=== PATIENT | male | born 1985 | race Caucasian/White ===

== ENCOUNTER → 2018-06-17 | Outpatient (CLI) | payer BC ==
[~2018-06-17] MED LIST: CIPR5DRO EACH EAR; HYDR1TAB PO; OMEP20TA7 PO
--- NOTE | 2018-06-17 14:28 | Diagnostic Imaging Report ---
PROCEDURE: MRI lumbar spine. TECHNIQUE: Multiplanar, multisequence MRI of the lumbar spine was performed without contrast. INDICATION: Left leg pain. FINDINGS: There are no previous MRI examinations available for comparison. The plain film examination of the lumbar spine performed on 10/25/2014 failed to show any sign of an acute bony abnormality. The T2 parasagittal images of this exam reveal that there is slight retrolisthesis of L4 with respect to L5 and that there is narrowing of the disc space. The disc is also desiccated. Furthermore, there is an extradural defect extending from the L4-L5 disc space caudally along the left ventral aspect of the thecal sac at L4-L5. This does compress the left ventral aspect of thecal sac resulting in mild central stenosis. The disc material is also in proximity to the exiting left nerve root and I suspect that there is encroachment of the nerve root at this level. The remainder of the lumbar spine is unremarkable for spinal stenosis or nerve root encroachment. There is no abnormal signal arising from the cord or the vertebral bodies to indicate an acute abnormality. There is no sign of a paraspinal mass. IMPRESSION: 1. There is degenerative disc and bony disease at L4-L5. There is a disc protrusion to the left at this level with caudal migration of the disc material. The disc compresses the left ventral aspect of the thecal sac resulting in mild spinal stenosis. There is also most likely encroachment of the exiting left nerve root at this level. 2. The remainder of the lumbar spine is unremarkable for spinal stenosis or nerve root encroachment. 3. There is no sign of an acute bony abnormality or of a cord lesion. Dictated by: Dictated on workstation # [id number]
== END ==
LOC: RAD 10:39
PROVIDERS: ATTEND Nurse Practitioner Family
DX: M47.26 Other spondylosis with radiculopathy, lumbar region (principal); M89.9 Disorder of bone, unspecified; M51.16 Intervertebral disc disorders with radiculopathy, lumbar region; M48.061 Spinal stenosis, lumbar region without neurogenic claudication
CPT/HCPCS: 72148

== ENCOUNTER 2018-07-03 19:34 | Emergency (ER) | payer BC ==
[~2018-07-03] VITALS: Ht 195.6 cm; Wt 111.1 kg
--- OUTSIDE RECORDS SUMMARY | 2018-07-03 20:07 | XMS REPORT | Continuity of Care Document ---
Author Author [facility] Organization [facility] Address Unknown Phone Unavailable Allergies Active Description Code Type Severity Reaction Onset Reported/Identified Relationship to Patient Clinical Status Yes NKANo Known Allergies NKA Miscellaneous Allergy Unknown N/A 04/09/2016 Medications There is no data. Problems Date Dx Coded Attending Type Code Diagnosis Diagnosed By 01/31/2011 Ot 831.01 01/31/2011 Ot 959.2 01/31/2011 Ot E000.8 01/31/2011 Ot E007.9 01/31/2011 Ot E849.4 01/31/2011 Ot E888.8 11/12/2014 Ot 724.2 01/26/2015 CAITLIN BAER DO Ot 327.23 OBSTRUCTIVE SLEEP APNEA (ADULT) (PEDIATR 07/18/2015 Ot 724.2 10/11/2015 Ot 724.2 11/23/2015 BRENT BOLAND [facility] Ot E07.9 11/23/2015 BRENT BOLAND [facility] Ot E16.2 11/23/2015 BRENT BOLAND [facility] Ot E78.5 11/23/2015 BRENT BOLAND [facility] Ot E87.5 11/23/2015 BRENT BOLAND [facility] Ot R00.2 01/09/2016 BRENT BOLAND [facility] Ot E07.9 DISORDER OF THYROID, UNSPECIFIED 01/09/2016 BRENT BOLAND [facility] Ot E16.2 HYPOGLYCEMIA, UNSPECIFIED 01/09/2016 BRENT BOLAND [facility] Ot E78.5 HYPERLIPIDEMIA, UNSPECIFIED 01/09/2016 BRENT BOLAND [facility] Ot E87.5 HYPERKALEMIA 01/09/2016 BRENT BOLAND [facility] Ot R00.2 PALPITATIONS 01/15/2016 BRENT BOLAND [facility] Ot E07.9 DISORDER OF THYROID, UNSPECIFIED 01/15/2016 BRENT BOLAND [facility] Ot E16.2 HYPOGLYCEMIA, UNSPECIFIED 01/15/2016 BRENT BOLAND [facility] Ot E78.5 HYPERLIPIDEMIA, UNSPECIFIED 01/15/2016 BRENT BOLAND [facility] Ot E87.5 HYPERKALEMIA 01/15/2016 BRENT BOLAND [facility] Ot R00.2 PALPITATIONS 04/09/2016 BRENT BOLAND [facility] Ot E07.9 DISORDER OF THYROID, UNSPECIFIED 04/09/2016 BRENT BOLAND [facility] Ot E16.2 HYPOGLYCEMIA, UNSPECIFIED 04/09/2016 BRENT BOLAND [facility] Ot E78.5 HYPERLIPIDEMIA, UNSPECIFIED 04/09/2016 BRENT BOLAND [facility] Ot E87.5 HYPERKALEMIA 04/09/2016 BRENT BOLAND [facility] Ot R00.2 PALPITATIONS 04/09/2016 ESTHELA PELLETIER, ELPIDIO P Ot H66.93 OTITIS MEDIA, UNSPECIFIED, BILATERAL 04/09/2016 ESTHELA PELLETIER, ELPIDIO P Ot Z01.818 ENCOUNTER FOR OTHER PREPROCEDURAL EXAMIN 04/11/2016 ELPIDIO PROCTOR MD P Ot H66.93 OTITIS MEDIA, UNSPECIFIED, BILATERAL 04/11/2016 ELPIDIO PROCTOR MD P Ot Z01.818 ENCOUNTER FOR OTHER PREPROCEDURAL EXAMIN 04/12/2016 ELPIDIO PROCTOR MD P Ot H66.93 OTITIS MEDIA, UNSPECIFIED, BILATERAL 04/12/2016 ESTHELA PELLETIER, ELPIDIO P Ot Z11.2 ENCOUNTER FOR SCREENING FOR OTHER BACTER 04/13/2016 ELPIDIO PROCTOR MD P Ot H66.93 OTITIS MEDIA, UNSPECIFIED, BILATERAL 04/13/2016 ESTHELA PELLETIER, ELPIDIO P Ot Z11.2 ENCOUNTER FOR SCREENING FOR OTHER BACTER 06/25/2017 Ot 724.2 LUMBAGO 06/25/2017 BRENT BOLAND [facility] Ot E07.9 DISORDER OF THYROID, UNSPECIFIED 06/25/2017 BRENT BOLAND [facility] Ot E16.2 HYPOGLYCEMIA, UNSPECIFIED 06/25/2017 BRENT BOLAND [facility] Ot E78.5 HYPERLIPIDEMIA, UNSPECIFIED 06/25/2017 BRENT BOLAND [facility] Ot E87.5 HYPERKALEMIA 06/25/2017 BRENT BOLAND [facility] Ot R00.2 PALPITATIONS 06/16/2018 Ot 724.2 LUMBAGO 06/16/2018 BRENT BOLAND [facility] Ot E07.9 DISORDER OF THYROID, UNSPECIFIED 06/16/2018 BRENT BOLAND Kendra [facility] Ot E16.2 HYPOGLYCEMIA, UNSPECIFIED 06/16/2018 IRIS BOLANDKenyon Gardner [facility] Ot E78.5 HYPERLIPIDEMIA, UNSPECIFIED 06/16/2018 BRENT BOLAND Kendra [facility] Ot E87.5 HYPERKALEMIA 06/16/2018 BRENT BOLAND Kendra [facility] Ot R00.2 PALPITATIONS 06/19/2018 EVE CHAVEZ [facility] Ot M47.26 OTHER SPONDYLOSIS WITH RADICULOPATHY, LOBO 06/19/2018 ISHMAEL CHAVEZYSON R [facility] Ot M48.061 SPINAL STENOSIS, LUMBAR REGION WITHOUT N 06/19/2018 EVE CHAVEZ R [facility] Ot M51.16 INTERVERTEBRAL DISC DISORDERS W RADICULO 06/19/2018 EVE CHAVEZ R [facility] Ot M89.9 DISORDER OF BONE, UNSPECIFIED Procedures There is no data. Results Test Result Range Methicillin resistant Staphylococcus aureus (MRSA) screening culture - 06:10 Methicillin resistant Staphylococcus aureus (MRSA) screening culture NEG NRG Encounters ACCT No. Visit Date/Time Discharge Status Pt. Type Provider Facility Loc./Unit Complaint [id number] 06/17/2018 10:39:00 06/17/2018 23:59:59 CLS Outpatient EVE CHAVEZ APRN [facility] RAD LOW BACK PAIN W/ RADICULOPATHY LT [id number] 04/12/2016 05:51:00 04/12/2016 08:40:00 DIS Outpatient ELPIDIO PROCTOR MD [facility] SDC OTITIS MEDIA [id number] 04/09/2016 05:42:00 04/09/2016 16:22:00 DIS Outpatient ELPIDIO PROCTOR MD [facility] PREOP OTITIS MEDIA [id number] 01/10/2016 08:00:00 01/10/2016 23:59:59 CLS Preadmit BRENT BOLAND APRN [facility] CARD HTN,CP,PALPITATIONS [id number] 10/11/2015 07:53:00 01/09/2016 00:01:00 DIS Outpatient BRENT BOLAND APRN [facility] CARD HTN,CP,PALPITATIONS [id number] 01/25/2015 19:53:00 01/26/2015 07:05:00 DIS Outpatient CAITLIN BAER DO [facility] SLEEP LINA,SNORING [id number] 10/25/2014 16:23:00 Document Registration [id number] 01/31/2011 19:24:00 Document Registration [id number] 01/25/2015 19:58:00 ACT Document Registration
[2018-07-03] MEDS ORDERED: TETANUS,DIPTH,PERTUSS P/F (BOOSTRIX) 0.5 ML VIAL IM ONE ×2 (20:36→21:00)
--- NOTE | 2018-07-03 20:53 | ED Integumentary General ---
General Chief Complaint: Laceration Stated Complaint: CUT FINGER Nursing Triage Note: PT WAS USING A BOX KNIFE AND HIS HAND SLIPPED, CUTTING THE RING FINGER ON HIS LEFT HAND. PT PRESENTS TO THE ED AMBULATORY, BLEEDING CURRENTLY BEING CONTROLLED BY A DISH TOWEL. Source: patient Exam Limitations: no limitations History of Present Illness Date Seen by Provider: Jul 03, 2018 Time Seen by Provider: 20:15 Initial Comments Patient is a 33-year-old male who presents to the emergency room with complaints of laceration to his left ring/fourth finger. He reports that he was cutting jami with a box knife when the knife slipped and cut his finger. He is not up-to-date on his tetanus shot. Timing/Duration: just prior to arrival Associated Symptoms: denies symptoms Allergies and Home Medications Allergies Coded Allergies: NKANo Known Allergies (Verified Allergy, Unknown, 04/09/16) Home Medications Ciprofloxacin HCl 5 Ml Drops, 3 DROPS EACH EAR BID Prescribed by: RON CHAPPELL on 04/12/16 0816 Hydrocodone Bit/Acetaminophen 1 Each Tablet, 1-2 EACH PO Q4HR PRN Prescribed by: SYLVESTER MCIHEL on 01/31/112031 Omeprazole 20 Mg Tablet.dr, 20 MG PO DAILY, (Reported) Patient Home Medication List Home Medication List Reviewed: Yes Review of Systems Review of Systems Constitutional: no symptoms reported, see HPI Skin: see HPI, other (laceration to left finger just over the PIP joint.) All Other Systems Reviewed Negative Unless Noted: Yes Past Xlyovtr-Kzhhig-Ojleix Hx Past Med/Social Hx: Reviewed Nursing Past Med/Soc Hx Patient Social History Alcohol Use: Occasionally Uses Alcohol Beverage of Choice: Beer Recreational Drug Use: No Smoking Status: Never a Smoker Recent Foreign Travel: No Contact w/Someone Who Travel: No Recent Infectious Disease Expo: No Recent Hopitalizations: No Immunizations Up To Date Tetanus Booster (TDap): More than 5yrs PED Vaccines UTD: Yes Seasonal Allergies Seasonal Allergies: No Past Medical History Surgeries: Yes (FX WRIST, TUBES IN EARS X2,UMBILICAL HERNIA, SMALL INTESTINE REPAIRED, ) Orthopedic Respiratory: Yes (CPAP) Sleep Apnea Cardiac: No Neurological: No Reproductive Disorders: No Sexually Transmitted Disease: No HIV/AIDS: No Genitourinary: No Gastrointestinal: Yes Gastroesophageal Reflux Musculoskeletal: No Endocrine: No HEENT: No Loss of Vision: Denies Hearing Impairment: Denies Cancer: No Psychosocial: No Integumentary: No Blood Disorders: No Adverse Reaction/Blood Tranf: No (N/A) Family Medical History Reviewed Nursing Family Hx Physical Exam Vital Signs Vital Signs - First Documented 07/03/18 20:20 Temp 99.2 Pulse 85 Resp 20 B/P (MAP) 153/102 (119) Pulse Ox 98 O2 Delivery Room Air Capillary Refill : Less Than 3 Seconds General Appearance: WD/WN, no apparent distress Cardiovascular: normal peripheral pulses, regular rate, rhythm, no edema, no gallop, no JVD, no murmur Respiratory: chest non-tender, lungs clear, normal breath sounds, no respiratory distress, no accessory muscle use Extremities: normal capillary refill, other Neurologic/Psychiatric: alert, normal mood/affect, oriented x 3 Skin: normal color, warm/dry Skin Problem Location: upper extremities (left 4th finger/ dorsal surface of finger see images 1.5cm) Comments no evidence of tendon injury. flexion and extension intact of left 4th finger. Procedures/Interventions Wound Location: Upper Extremities Other Wound Location Left 4th finger see images Wound Length (cm): 1.5 Wound's Depth, Shape: superficial Wound Explored: clean Irrigated w/ Saline (ccs): 200 Anesthesia: 1% Lidocaine Volume Anesthetic (ccs): 2 Wound Debrided: minimal Suture: Prolene Suture Size: 5-0 Number of Sutures: 6 Progress The wound was cleaned and irrigated with normal saline. The wound was anesthetized with 1% lidocaine with out epi. Finger tourniquet was applied to control bleeding. The wound was closed with 6 simple interrupted sutures of 5-0 Prolene. Finger tourniquet was removed bleeding had ceased. Progress/Results/Core Measures Results/Orders My Orders Orders - BERNOT,DINO Lidocaine 1% Inj 20 Ml (Xylocaine 1% Inj (07/03/18 21:00) Dipht,Pertuss(Acell),Tet Adult (Boostrix (07/03/18 21:00) Medications Given in ED Vital Signs/I&O 07/03/18 07/03/18 20:20 21:03 Temp 99.2 99.2 Pulse 85 85 Resp 20 20 B/P (MAP) 153/102 (119) 153/102 (119) Pulse Ox 98 98 O2 Delivery Room Air Blood Pressure Mean: 119 Departure Impression Primary Impression: Laceration Disposition: 01 HOME, SELF-CARE Condition: Stable/Unchanged Departure-Patient Inst. Decision time for Depature: 20:53 Referrals: CAITLIN BAER DO (PCP/Family) Primary Care Physician Patient Instructions: Laceration Repair With Stitches (DC) Add. Discharge Instructions: Watch for signs of infection such as increased redness, swelling, drainage. Tylenol and ibuprofen as directed by the bottle for pain relief. Return back to the emergency room in 7 days for suture removal. Follow-up with your primary care provider as needed return back to the emergency room for any worsening symptoms or concerns as needed. All discharge instructions reviewed with patient and/or family. Voiced understanding. Images Extremities-Upper 1 - Laceration DINO GARCIA Jul 03, 2018 20:53
[2018-07-03] MEDS ORDERED: LIDOCAINE 1% INJ 20 ML 20 ML VIAL INJ ONE (21:00)
[2018-07-03 21:03] VITALS: BP 153/102
== END 2018-07-03 21:03 | disposition home or self-care (01) ==
LOC: EDUNIT# 19:34 → ER 19:35
DX: S61.215A Laceration without foreign body of left ring finger without damage to nail, initial encounter (principal); G47.30 Sleep apnea, unspecified; K21.9 Gastro-esophageal reflux disease without esophagitis; Z23 Encounter for immunization; Z98.890 Other specified postprocedural states; W27.8XXA Contact with other nonpowered hand tool, initial encounter
CPT/HCPCS: 90715; 99284

== ENCOUNTER 2019-03-20 21:19 | Inpatient (IN) | payer BC ==
[~2019-03-20] VITALS: Ht 182.9 cm; Wt 113.4 kg
[2019-03-20] MEDS ORDERED: OMEP20CA13 (21:31)
[2019-03-20] MEDS ORDERED: CIPR2.5D2 LEFT EAR (21:31)
[2019-03-20] MEDS ORDERED: CEFU250T80 PO (21:31)
[2019-03-20] MEDS ORDERED: fentaNYL INJECTION 100 MCG/2 ML AMP IVP STA (21:49)
[2019-03-20] MEDS ORDERED: NS IV 1000 ML 1,000 ML IV ONE (21:49)
[2019-03-20 21:57] LABS: BASOPHILS % (AUTO) 0 % (0-10); EOSINOPHILS % (AUTO) 0 % (0-10); HEMATOCRIT 44 % (40-54); HEMOGLOBIN 15.1 G/DL (13.3-17.7); LYMPHOCYTES # (AUTO) 1.2 X 10^3 (1.0-4.0); LYMPHOCYTES % (AUTO) 9 % (12-44); MEAN CORPUSCULAR HEMOGLOBIN 30 PG (25-34); MEAN CORPUSCULAR HGB CONC 34 G/DL (32-36); MEAN CORPUSCULAR VOLUME 89 FL (80-99); MEAN PLATELET VOLUME 11.1 FL (7.4-10.4); MONOCYTES # (AUTO) 1.2 X 10^3 (0.0-1.0); MONOCYTES % (AUTO) 10 % (0-12); NEUTROPHILS # (AUTO) 10.4 X 10^3 (1.8-7.8); NEUTROPHILS % (AUTO) 81 % (42-75); PLATELET COUNT 325 10^3/uL (130-400); WHITE BLOOD COUNT 12.9 10^3/uL (4.3-11.0)
[2019-03-20] MEDS ORDERED: VANCOMYCIN INJECTION 1,000 MG in NS (IVPB) 250 ML IV STA (21:58)
[2019-03-20] MEDS ORDERED: CEFEPIME INJECTION 2,000 MG in WATER (STERILE) FOR INJECTION 20 ML IV ONE (22:00)
[2019-03-20] MEDS ORDERED: KETOROLAC 30 MG/ML VIAL IVP ONE (22:00)
[2019-03-20] MEDS ORDERED: ONDANSETRON 4 MG/2 ML (SDV) Z0FRAN IVP ONE (22:00)
--- NOTE | 2019-03-20 22:05 | ED EENT ---
History of Present Illness General Chief Complaint: Ear Problems Stated Complaint: L EAR INFECTION/SWELLING Nursing Triage Note: LEFT EAR PAIN/DRAINAGE/SWELLING SINCE 03/16/19. SEEN BY PCP/ENT FOR SAME STARTED ON ABX WITHOUT IMPROVEMENT. Source: patient, spouse Exam Limitations: no limitations History of Present Illness Date Seen by Provider: Mar 20, 2019 Time Seen by Provider: 21:45 Initial Comments Patient presents to ER by private conveyance with his significant other and chief complaint that he's having left ear pain and discharge of the thin yellow substance as well as fevers and chills for the past 3 or 4 days. Aggressively gotten worse. His been using ibuprofen and Tylenol but his last dose of ibuprofen 400 mg at 5:00 approximately 5 hours prior to arrival. Tylenol was approximately 3 hours prior to arrival. He is afebrile the ER or his nurse. He says he had chills all night last night and had a hard time sleeping because of the pain. No other significant medical history does not take any medicines routinely. 3 years ago he had bilateral myringotomy tubes placed by Dr. Ghotra, ENT. Call Dr. Ghotra 2 days ago and was cold out on some oral antibiotics which she has been taking. Yesterday he was still having significant difficulty so he went to Dr. Adair primary care if she said the myringotomy tube on the right ear was in place the left tube was missing and ear had some discharge redness and swelling which is worse today. She put him on ciprofloxacin eardrops. No history of mastoiditis cholesteatoma or significant ear infections since having the tubes placed. Allergies and Home Medications Allergies Coded Allergies: NKANo Known Allergies (Verified Allergy, Unknown, 04/09/16) Home Medications Omeprazole 20 Mg Tablet.dr, 20 MG PO DAILY, (Reported) Patient Home Medication List Home Medication List Reviewed: Yes Review of Systems Review of Systems Constitutional: No chills, No diaphoresis Eyes: Denies Blindness, Denies Blurred Vision Ears: See HPI; Denies Dizziness; Pain, Purulent Discharge Nose: denies clots, denies congestion Mouth: denies clots, denies loose teeth Throat: denies pain, denies swelling Respiratory: No cough, No short of breath Cardiovascular: No chest pain, No edema Past Fvsyjxa-Pbvqff-Tqwcds Hx Patient Social History Alcohol Use: Occasionally Uses Number of Drinks Today: AA Alcohol Beverage of Choice: Beer Recreational Drug Use: No Smoking Status: Never a Smoker 2nd Hand Smoke Exposure: No Recent Foreign Travel: No Contact w/Someone Who Travel: No Recent Infectious Disease Expo: No Recent Hopitalizations: No Physical Abuse: No Sexual Abuse: No Mistreated: No Fear: No Immunizations Up To Date Tetanus Booster (TDap): Less than 5yrs PED Vaccines UTD: Yes Seasonal Allergies Seasonal Allergies: No Past Medical History Surgeries: Yes (FX WRIST, TUBES IN EARS X4,UMBILICAL HERNIA, SMALL INTESTINE REPAIRED, ) Abdominal, Orthopedic Respiratory: Yes (CPAP) Sleep Apnea Cardiac: Yes Hypertension Neurological: No Reproductive Disorders: No Sexually Transmitted Disease: No HIV/AIDS: No Genitourinary: No Gastrointestinal: Yes Abdominal Hernia, Gastroesophageal Reflux Musculoskeletal: No Endocrine: No HEENT: No Loss of Vision: Denies Hearing Impairment: Denies Cancer: No Psychosocial: No Integumentary: No Blood Disorders: No Adverse Reaction/Blood Tranf: No (N/A) Physical Exam Vital Signs Vital Signs - First Documented 03/20/19 21:23 Temp 97.8 Pulse 102 Resp 18 B/P (MAP) 148/95 (112) Pulse Ox 97 O2 Delivery Room Air Height, Weight, BMI Height: 6'0" Weight: 250lbs. 0.0oz. 113.284016zc; 37.44 BMI Method:Stated General Appearance: WD/WN, mild distress Eyes: bilateral eye normal inspection, bilateral eye PERRL, bilateral eye EOMI Ears: right ear auricle normal, right ear canal normal, right ear TM normal (tympanostomy tube in place blue); left ear discharge (thick yellow discharge), left ear erythema, left ear swelling (are equal and canal), left ear tenderness, left ear other (tympanostomy tubes seen) Nose: normal inspection; No discharge Mouth/Throat: normal mouth inspection, pharynx normal Neck: non-tender, full range of motion, supple, normal inspection Cardiovascular: normal peripheral pulses, regular rate, rhythm, tachycardia Respiratory: no respiratory distress, no accessory muscle use Neurologic/Psychiatric: alert, normal mood/affect, oriented x 3 Skin: normal color, warm/dry Procedures/Interventions Suture Size: 5-0 Progress/Results/Core Measures Results/Orders Lab Results Laboratory Tests Test 03/20/19 21:23 Range/Units White Blood Count 12.9 H 4.3-11.0 10^3/uL Red Blood Count 5.00 4.35-5.85 10^6/uL Hemoglobin 15.1 13.3-17.7 G/DL Hematocrit 44 40-54 % Mean Corpuscular Volume 89 80-99 FL Mean Corpuscular Hemoglobin 30 25-34 PG Mean Corpuscular Hemoglobin Concent 34 32-36 G/DL Red Cell Distribution Width 14.0 10.0-14.5 % Platelet Count 325 130-400 10^3/uL Mean Platelet Volume 11.1 H 7.4-10.4 FL Neutrophils (%) (Auto) 81 H 42-75 % Lymphocytes (%) (Auto) 9 L 12-44 % Monocytes (%) (Auto) 10 0-12 % Eosinophils (%) (Auto) 0 0-10 % Basophils (%) (Auto) 0 0-10 % Neutrophils # (Auto) 10.4 H 1.8-7.8 X 10^3 Lymphocytes # (Auto) 1.2 1.0-4.0 X 10^3 Monocytes # (Auto) 1.2 H 0.0-1.0 X 10^3 Eosinophils # (Auto) 0.0 0.0-0.3 10^3/uL Basophils # (Auto) 0.0 0.0-0.1 10^3/uL Sodium Level 137 135-145 MMOL/L Potassium Level 3.7 3.6-5.0 MMOL/L Chloride Level 103 98-107 MMOL/L Carbon Dioxide Level 20 L 21-32 MMOL/L Anion Gap 14 5-14 MMOL/L Blood Urea Nitrogen 11 7-18 MG/DL Creatinine 0.92 0.60-1.30 MG/DL Estimat Glomerular Filtration Rate > 60 BUN/Creatinine Ratio 12 Glucose Level 105 70-105 MG/DL Lactic Acid Level 0.79 0.50-2.00 MMOL/L Calcium Level 9.4 8.5-10.1 MG/DL Corrected Calcium 9.2 8.5-10.1 MG/DL Total Bilirubin 0.6 0.1-1.0 MG/DL Aspartate Amino Transf (AST/SGOT) 18 5-34 U/L Alanine Aminotransferase (ALT/SGPT) 31 0-55 U/L Alkaline Phosphatase 137 H 40-136 U/L C-Reactive Protein High Sensitivity 8.27 H 0.00-0.50 MG/DL Total Protein 8.1 6.4-8.2 GM/DL Albumin 4.3 3.2-4.5 GM/DL My Orders Orders - SOLE STEVENS Ketorolac Injection (Toradol Injection) (03/20/19 22:00) Cefepime Injection (Maxipime Injection) (03/20/19 22:00) Vancomycin Injection (Vancomycin Injecti (03/20/19 21:58) Vancomycin Injection (Vancomycin Injecti (03/20/19 22:22) Ns (Ivpb) (Sodium Chloride 0.9%) (03/20/19 22:22) Medications Given in ED Current Medications Medications Dose Ordered Sig/Miguel Route Start Time Stop Time Status Last Admin Dose Admin Cefepime HCl 2000 mg/Sterile Water 20 ml @ 240 mls/hr ONCE ONCE IV 03/20/19 22:00 03/20/19 22:04 DC 03/20/19 22:06 240 MLS/HR Ketorolac Tromethamine 30 mg ONCE ONCE IVP 03/20/19 22:00 03/20/19 22:02 DC 03/20/19 22:08 30 MG Ondansetron HCl 4 mg ONCE ONCE IVP 03/20/19 22:00 03/20/19 22:01 DC 03/20/19 22:08 4 MG Sodium Chloride 1,000 ml @ 0 mls/hr Q0M ONCE IV 03/20/19 21:49 03/20/19 21:52 DC 03/20/19 22:06 999 MLS/HR Vital Signs/I&O 03/20/19 21:23 Temp 97.8 Pulse 102 Resp 18 B/P (MAP) 148/95 (112) Pulse Ox 97 O2 Delivery Room Air Blood Pressure Mean: 112 Progress Progress Note : Time: 22:07 Progress Note History of subjective fevers and chills, tachycardic and worsening pain discharge despite 2 days of antibiotics orally and 1 day of topical antibiotics. He has swelling and tenderness around his mastoid bone as well as the tragus of his left ear. Suspect she might have mastoiditis or abscess. We'll give him something with some pseudomonal and MRSA coverage cefepime and vancomycin get a septic workup and a CT of the maxillofacial. Toradol for pain and if that doesn't work we'll try fentanyl. Diagnostic Imaging Diagonstic Imaging: Xray Plain Films/CT/US/NM/MRI: chest (1v) Reviewed: Reviewed by Me Diagonstic Imaging: CT Plain Films/CT/US/NM/MRI: facial bones Reviewed: Reviewed [place] Study, Reviewed by Me Departure Communication (Admissions) Time/Spoke to Admitting Phy: 23:00 Discussed the case lab and imaging and she agrees with antibiotic choices and admission. Stable for floor. Impression Primary Impression: Acute otitis media, left Additional Impressions: Sepsis Qualified Codes: A41.9 - Sepsis, unspecified organism Cellulitis of left ear canal Disposition: ADMITTED INPATIENT Condition: Stable Admissions Decision to Admit Reason: Admit from ER (General) Decision to Admit/Date: Mar 20, 2019 Time/Decision to Admit Time: 22:56 Departure-Patient Inst. Referrals: CAITLIN ADAIR DO (PCP/Family) Primary Care Physician SOLE STEVENS Mar 20, 2019 22:05
[2019-03-20 22:13] LABS: ALANINE AMINOTRANSFERASE 31 U/L (0-55); ALBUMIN 4.3 GM/DL (3.2-4.5); ALKALINE PHOSPHATASE 137 U/L (40-136); BILIRUBIN,TOTAL 0.6 MG/DL (0.1-1.0); BUN/CREATININE RATIO 12; CALCIUM 9.4 MG/DL (8.5-10.1); CARBON DIOXIDE 20 MMOL/L (21-32); CHLORIDE 103 MMOL/L (98-107); CREATININE SERUM 0.92 MG/DL (0.60-1.30); GFR ESTIMATED > 60; GLUCOSE 105 MG/DL (70-105); POTASSIUM 3.7 MMOL/L (3.6-5.0); SODIUM 137 MMOL/L (135-145); TOTAL PROTEIN 8.1 GM/DL (6.4-8.2)
[2019-03-20] MEDS ORDERED: NS (IVPB) 250 ML ONE (22:22)
[2019-03-20] MEDS ORDERED: VANCOMYCIN 1000 MG/VIAL ONE (22:22)
[2019-03-20] MEDS ORDERED: ACETAMINOPHEN 325 MG TABLET PO ONE (23:30)
[2019-03-20 23:42] VITALS: BP 135/88
[2019-03-20 23:46] VITALS: BP 135/88
--- OUTSIDE RECORDS SUMMARY | 2019-03-21 00:03 | XMS REPORT | CCD ---
Author Author Caitlin Adair D.O. Organization [facility] Address [address] [place] [address] Phone Care Team Providers Care Package Dyeing Machine Operator Name Role Phone Caitlin Adair D.O., PP Unavailable CCM Unavailable Summary Purpose Interface Exchange Insurance Providers Payer name Policy type / Coverage type Covered alliance party ID Effective Begin Date Effective End Date Blue Cross Blue Shield Blue Cross/Blue Shield [id number] 2018 Unknown Family history Father Diagnosis Age At Onset Hyperthyroidism Unknown Hiatal Hernia Unknown Mother Diagnosis Age At Onset Hypertension Unknown Social History Social History Element Codes Description Effective Dates Marital status Unknown 06/09/2014 Employment Unknown Currently employed 06/09/[address]: 905974 Currently drinks alcohol per week, 3-5 06/09/2014 Allergies, Adverse Reactions, Alerts Substance Reaction Codes Entered Date Inactivated Date Status * NO KNOWN FOOD ALLERGIES Unknown 06/09/2014 No Inactive Date Active * NO KNOWN DRUG ALLERGIES Unknown 06/09/2014 No Inactive Date Active Past Medical History Illness Codes Condition Status Onset Date Resolved Date Hypertension Unknown Active 03/19/2019 Unknown Acute suppurative otitis media with spontaneous rupture of ear drum, left ear ICD-9: 382.01 ICD-10: H66.012 Active 03/19/2019 Unknown Essential (primary) hypertension ICD-9: 401.9 ICD-10: I10 Active 03/19/2019 Unknown Acute pharyngitis, unspecified ICD-9: 462 ICD-10: J02.9 Active 08/15/2017 Unknown Acute upper respiratory infection, unspecified ICD-9: 465.9 ICD-10: J06.9 Active 10/23/2018 Unknown Lumbago with sciatica, left side ICD-9: 724.3 ICD-10: M54.42 Active 06/16/2018 Unknown Encounter for general adult medical examination without abnormal findings ICD-9: V70.0 ICD-10: Z00.00 Active 02/15/2017 Unknown Gastro-esophageal reflux disease without esophagitis ICD-9: 530.81 ICD-10: K21.9 Active 02/15/2017 Unknown Mixed hyperlipidemia ICD- 9: 272.2 ICD-10: E78.2 Active 10/09/2015 Unknown Allergic rhinitis, unspecified ICD-9: 477.9 ICD-10: J30.9 Active 01/01/2016 Unknown Chest pain, unspecified ICD-9: 786.50 ICD-10: R07.9 Active 10/09/2015 Unknown Encounter for general adult medical examination with abnormal findings ICD-9: V70.0 ICD-10: Z00.01 Active 10/09/2015 Unknown Hyperkalemia ICD-9: 276.7 ICD-10: E87.5 Active 10/09/2015 Unknown Hypoglycemia, unspecified ICD-9: 251.2 ICD-10: E16.2 Active 10/09/2015 Unknown Palpitations ICD-9: 785.1 ICD-10: R00.2 Active 10/09/2015 Unknown GERD ICD-9: 530.81 Active 06/09/2014 Unknown SCIATICA ICD-9: 724.3 Active 06/09/2014 Unknown Tinea versicolor ICD-9: 111.0 Active 06/09/2014 Unknown Problems Condition Codes Effective Dates Condition Status Hypertension Unknown 03/19/2019 Active Acute suppurative otitis media with spontaneous rupture of ear drum, left ear ICD-9: 382.01 ICD-10: H66.012 03/19/2019 Active Essential (primary) hypertension ICD-9: 401.9 ICD-10: I10 03/19/2019 Active Acute pharyngitis, unspecified ICD-9: 462 ICD-10: J02.9 08/15/2017 Active Acute upper respiratory infection, unspecified ICD-9: 465.9 ICD-10: J06.9 10/23/2018 Active Lumbago with sciatica, left side ICD-9: 724.3 ICD-10: M54.42 06/16/2018 Active Encounter for general adult medical examination without abnormal findings ICD-9: V70.0 ICD-10: Z00.00 02/15/2017 Active Gastro-esophageal reflux disease without esophagitis ICD-9: 530.81 ICD-10: K21.9 02/15/2017 Active Mixed hyperlipidemia ICD- 9: 272.2 ICD-10: E78.2 10/09/2015 Active Allergic rhinitis, unspecified ICD-9: 477.9 ICD-10: J30.9 01/01/2016 Active Chest pain, unspecified ICD-9: 786.50 ICD-10: R07.9 10/09/2015 Active Encounter for general adult medical examination with abnormal findings ICD-9: V70.0 ICD-10: Z00.01 10/09/2015 Active Hyperkalemia ICD-9: 276.7 ICD-10: E87.5 10/09/2015 Active Hypoglycemia, unspecified ICD-9: 251.2 ICD-10: E16.2 10/09/2015 Active Palpitations ICD-9: 785.1 ICD-10: R00.2 10/09/2015 Active GERD ICD-9: 530.81 06/09/2014 Active SCIATICA ICD-9: 724.3 06/09/2014 Active Tinea versicolor ICD-9: 111.0 06/09/2014 Active Medications Medication Codes Instructions Start Date Stop Date Status Fill Instructions ciprofloxacin 0.3 % eye drops RxNorm: 340938 4 Drop(s) left OTIC BID 03/19/2019 03/25/2019 Active cefuroxime axetil 250 mg tablet RxNorm: 528769 1 Tablet(s) PO BID 03/19/2019 03/28/2019 Active Ciprodex 0.3 %-0.1 % ear drops,suspension RxNorm: 278210 4 Drop(s) otic (ear) BID 03/19/2019 03/19/2019 Inactive omeprazole 20 mg capsule,delayed release RxNorm: 106938 1 CAPSULE(S) PO QD DUE FOR FOLLOW UP ON THIS MEDICATION 02/16/2019 04/16/2019 Active omeprazole 20 mg capsule,delayed release RxNorm: 943075 1 Capsule(s) PO QD due for follow up on this medication 11/17/2018 12/16/2018 Inactive prednisone 10 mg tablet RxNorm: 207753 1 Tablet(s) PO TID 10/23/2018 10/27/2018 Inactive Celebrex 200 mg capsule RxNorm: 900728 1 Capsule(s) PO BID 06/19/2018 10/22/2018 Inactive Medrol (Zeus) 4 mg tablets in a dose pack RxNorm: 685592 Tablet(s) PO take as directed 06/16/2018 10/22/2018 Inactive omeprazole 20 mg capsule,delayed release RxNorm: 361750 1 CAPSULE(S) PO QD 05/26/2018 11/16/2018 Inactive omeprazole 20 mg capsule,delayed release RxNorm: 360026 1 Capsule(s) PO QD 02/18/2018 05/18/2018 Inactive omeprazole 40 mg capsule,delayed release RxNorm: 20020920 1 Capsule(s) PO QD Needs routine appointment 02/03/2018 02/17/2018 Inactive Zithromax Z-Zeus 250 mg tablet RxNorm: 711846 Tablet(s) PO as directed 08/15/2017 02/17/2018 Inactive omeprazole 40 mg capsule,delayed release RxNorm: 20020920 1 Capsule(s) PO QD Needs routine appointment 02/15/2017 02/03/2018 Inactive omeprazole 40 mg capsule,delayed release RxNorm: 20020920 1 Capsule(s) PO QD Needs routine appointment 01/08/2017 02/06/2017 Inactive omeprazole 40 mg capsule,delayed release RxNorm: 20020920 Capsule(s) CAPSULE(S) 1 CAPSULE(S) PO QD 10/10/2016 01/07/2017 Inactive omeprazole 40 mg capsule,delayed release RxNorm: 20020920 CAPSULE(S) 1 CAPSULE(S) PO QD 07/15/2016 10/10/2016 Inactive ketoconazole 2 % topical cream RxNorm: 615176 Application TOP BID 06/19/2016 02/14/2017 Inactive omeprazole 40 mg capsule,delayed release RxNorm: 20020920 CAPSULE(S) 1 CAPSULE(S) PO QD 02/14/2016 07/12/2016 Inactive omeprazole 40 mg capsule,delayed release RxNorm: 20020920 Capsule(s) 1 CAPSULE(S) PO QD 08/18/2015 02/13/2016 Inactive omeprazole 40 mg capsule,delayed release RxNorm: 20020920 1 CAPSULE(S) PO QD 02/14/2015 08/18/2015 Inactive cyclobenzaprine 10 mg tablet RxNorm: 000664 1 Tablet(s) PO TID as needed 10/25/2014 10/09/2015 Inactive Zorvolex 35 mg capsule RxNorm: 4088650 1 Capsule(s) PO TID start after steroid 10/25/2014 10/09/2015 Inactive omeprazole 40 mg capsule,delayed release RxNorm: 216569 1 Capsule(s) PO QD 10/11/2014 02/07/2015 Inactive Zorvolex 35 mg capsule RxNorm: 7616784 1 Capsule(s) PO TID start after steroid 08/27/2014 10/24/2014 Inactive cyclobenzaprine 10 mg tablet RxNorm: 396907 1 Tablet(s) PO TID as needed 08/27/2014 10/24/2014 Inactive prednisone 20 mg tablet RxNorm: 790941 1 Tablet(s) PO BID 08/27/2014 09/02/2014 Inactive Zorvolex 35 mg capsule RxNorm: 6140963 1 Capsule(s) PO TID start after steroid 06/09/2014 08/26/2014 Inactive ketoconazole 2 % shampoo RxNorm: 032354 Application TOP Q2D 06/09/2014 08/26/2014 Inactive baclofen 20 mg tablet RxNorm: 819621 1 Tablet(s) PO QHS as needed for muscle spasm 06/09/2014 08/26/2014 Inactive prednisone 20 mg tablet RxNorm: 830434 1 Tablet(s) PO BID 06/09/2014 06/15/2014 Inactive ketoconazole 2 % topical cream RxNorm: 279475 Application TOP BID 06/09/2014 08/26/2014 Inactive omeprazole 40 mg capsule,delayed release RxNorm: 820148 1 Capsule(s) PO QD 06/09/2014 10/11/2014 Inactive tramadol 50 mg tablet RxNorm: 096852 1-2 Tablet(s) PO TID as needed for pain No Start Date 10/22/2018 Inactive Prilosec 10 mg capsule,delayed release RxNorm: 954242 1 Capsule(s) PO QD No Start Date 10/09/2015 Inactive Flonase 50 mcg/actuation nasal spray,suspension RxNorm: 445450 [place] NASAL as needed No Start Date 08/14/2017 Inactive Celebrex 200 mg capsule RxNorm: 811353 1 Capsule(s) PO BID No Start Date 06/18/2018 Inactive ketoconazole 2 % topical cream RxNorm: 193287 Application TOP BID No Start Date 06/18/2016 Inactive Medication Administered No Medication Administered data Immunizations No Immunization data Assessments Condition Codes Effective Dates Essential (primary) hypertension ICD-10: I10 ICD-9: 401.9 03/19/2019 Acute suppurative otitis media with spontaneous rupture of ear drum, left ear ICD-10: H66.012 ICD-9: 382.01 03/19/2019 Acute pharyngitis, unspecified ICD-10: J02.9 ICD-9: 462 10/23/2018 Acute upper respiratory infection, unspecified ICD-10: J06.9 ICD-9: 465.9 10/23/2018 Lumbago with sciatica, left side ICD-10: M54.42 ICD-9: 724.3 06/16/2018 Mixed hyperlipidemia ICD-10: E78.2 ICD-9: 272.2 02/18/2018 Gastro-esophageal reflux disease without esophagitis ICD-10: K21.9 ICD-9: 530.81 02/18/2018 Encounter for general adult medical examination without abnormal findings ICD-10: Z00.00 ICD-9: V70.0 02/18/2018 Allergic rhinitis, unspecified ICD-10: J30.9 ICD-9: 477.9 01/02/2016 Chest pain, unspecified ICD-10: R07.9 ICD-9: 786.50 10/10/2015 Hyperkalemia ICD-10: E87.5 ICD-9: 276.7 10/10/2015 Palpitations ICD-10: R00.2 ICD-9: 785.1 10/10/2015 Hypoglycemia, unspecified ICD-10: E16.2 ICD-9: 251.2 10/10/2015 Encounter for general adult medical examination with abnormal findings ICD-10: Z00.01 ICD-9: V70.0 10/10/2015 SCIATICA ICD-9: 724.3 10/25/2014 GERD ICD-9: 530.81 06/09/2014 Tinea versicolor ICD-9: 111.0 06/09/2014 Reason For Visit Reason For Visit Effective Dates Notes dizziness 03/19/2019 sinus congestion 10/23/2018 was irritated on Saturday low back pain 06/16/2018 extends down to left hip and buttocks area well man exam (18-39 years) 02/18/2018 sore throat 08/15/2017 well man exam (18-39 years) 02/15/2017 Wellness injection(s) 01/02/2016 Kenalog 40mg well man exam (18-39 years) 10/10/2015 Wellness back pain 10/25/2014 back pain 08/27/2014 leg pain/sciatica 06/09/2014 on upper back Results No Results data Review of Systems System Result Effective Dates Constitutional No fever 03/19/2019 Constitutional No chills 03/19/2019 Neurologic No headache 03/19/2019 Ears/Nose/Throat/Neck No headache 03/19/2019 Respiratory No cough 03/19/2019 Neurologic dizziness 03/19/2019 Neurologic vertigo 03/19/2019 Neurologic No vision change 03/19/2019 Ears/Nose/Throat/Neck dizziness 03/19/2019 Ears/Nose/Throat/Neck otorrhea 03/19/2019 Ears/Nose/Throat/Neck No sinus congestion 03/19/2019 Ears/Nose/Throat/Neck No sinusitis 03/19/2019 Ears/Nose/Throat/Neck No sore throat 03/19/2019 Constitutional No fussiness 10/23/2018 Constitutional No night sweats 10/23/2018 Constitutional No anorexia 10/23/2018 Constitutional No chills 10/23/2018 Constitutional No diaphoresis 10/23/2018 Constitutional recent illness 10/23/2018 Constitutional fatigue 10/23/2018 Constitutional No fever 10/23/2018 Constitutional No insomnia 10/23/2018 Constitutional No malaise 10/23/2018 Constitutional No weight gain/obesity 10/23/2018 Constitutional No weight loss 10/23/2018 Eyes No eye pain 10/23/2018 Eyes No vision change 10/23/2018 Ears/Nose/Throat/Neck No dizziness 10/23/2018 Ears/Nose/Throat/Neck No headache 10/23/2018 Ears/Nose/Throat/Neck nasal discharge 10/23/2018 Ears/Nose/Throat/Neck postnasal drip 10/23/2018 Ears/Nose/Throat/Neck sinus congestion 10/23/2018 Ears/Nose/Throat/Neck sore throat 10/23/2018 Cardiovascular No dyspnea 10/23/2018 Cardiovascular No palpitations 10/23/2018 Respiratory No cough 10/23/2018 Respiratory No chest tightness 10/23/2018 Respiratory No chest congestion 10/23/2018 Gastrointestinal No constipation 10/23/2018 Gastrointestinal No diarrhea 10/23/2018 Gastrointestinal No vomiting 10/23/2018 Gastrointestinal No nausea 10/23/2018 Genitourinary/Nephrology No dysuria 10/23/2018 Musculoskeletal No stiffness 10/23/2018 Musculoskeletal No low back pain 10/23/2018 Dermatologic No rash 10/23/2018 Dermatologic No sores 10/23/2018 Neurologic No alteration of consciousness 10/23/2018 Neurologic No mental status change 10/23/2018 Psychiatric No anxiety 10/23/2018 Psychiatric No depression 10/23/2018 Hematologic/Lymphatic No abnormal ecchymoses 10/23/2018 Hematologic/Lymphatic No abnormal bleeding and bruising 10/23/2018 Constitutional No fatigue 06/16/2018 Constitutional No fever 06/16/2018 Constitutional No chills 06/16/2018 Respiratory No cough 06/16/2018 Respiratory No chest congestion 06/16/2018 Respiratory No chest tightness 06/16/2018 Musculoskeletal low back pain 06/16/2018 Musculoskeletal sciatica 06/16/2018 Gastrointestinal No abdominal pain 06/16/2018 Gastrointestinal No constipation 06/16/2018 Gastrointestinal No diarrhea 06/16/2018 Genitourinary/Nephrology No anuria/oliguria 06/16/2018 Genitourinary/Nephrology No urinary incontinence 06/16/2018 Genitourinary/Nephrology No urinary frequency 06/16/2018 Genitourinary/Nephrology No urinary urgency 06/16/2018 Dermatologic No rash 06/16/2018 Gastrointestinal gastroesophageal reflux 02/18/2018 Constitutional weight gain/obesity 02/18/2018 Ears/Nose/Throat/Neck No hearing loss 02/18/2018 Ears/Nose/Throat/Neck No nasal discharge 02/18/2018 Ears/Nose/Throat/Neck No sinus congestion 02/18/2018 Ears/Nose/Throat/Neck No sore throat 02/18/2018 Dermatologic verruca 02/18/2018 Genitourinary/Nephrology No dysuria 02/18/2018 Genitourinary/Nephrology No nocturia 02/18/2018 Genitourinary/Nephrology No urinary incontinence 02/18/2018 Musculoskeletal No muscle weakness 02/18/2018 Musculoskeletal No myalgias 02/18/2018 Musculoskeletal No stiffness 02/18/2018 Musculoskeletal No swelling 02/18/2018 Neurologic No dizziness 02/18/2018 Neurologic No headache 02/18/2018 Neurologic No neck pain 02/18/2018 Neurologic No syncope 02/18/2018 Psychiatric No anxiety 02/18/2018 Psychiatric No depression 02/18/2018 Endocrine No goiter 02/18/2018 Endocrine No hyperglycemia 02/18/2018 Endocrine No hypoglycemia 02/18/2018 Respiratory No asthma 02/18/2018 Respiratory No cough 02/18/2018 Respiratory No dyspnea 02/18/2018 Respiratory No pleuritic pain 02/18/2018 Respiratory No productive sputum 02/18/2018 Respiratory No wheezing 02/18/2018 Cardiovascular No arrhythmia 02/18/2018 Cardiovascular No chest pain/pressure 02/18/2018 Cardiovascular No edema 02/18/2018 Cardiovascular No exercise intolerance 02/18/2018 Cardiovascular No orthopnea 02/18/2018 Cardiovascular No palpitations 02/18/2018 Constitutional fatigue 08/15/2017 Constitutional No fever 08/15/2017 Ears/Nose/Throat/Neck sore throat 08/15/2017 Respiratory No asthma 08/15/2017 Respiratory cough 08/15/2017 Respiratory No dyspnea 08/15/2017 Respiratory No pleuritic pain 08/15/2017 Respiratory No productive sputum 08/15/2017 Respiratory No wheezing 08/15/2017 Musculoskeletal myalgias 08/15/2017 Neurologic No dizziness 08/15/2017 Neurologic No headache 08/15/2017 Neurologic No neck pain 08/15/2017 Neurologic No syncope 08/15/2017 Constitutional night sweats 08/15/2017 Constitutional No chills 08/15/2017 Ears/Nose/Throat/Neck hoarseness 08/15/2017 Constitutional No fatigue 02/15/2017 Constitutional No insomnia 02/15/2017 Cardiovascular No chest pain/pressure 02/15/2017 Cardiovascular No dyspnea 02/15/2017 Respiratory No dyspnea 02/15/2017 Gastrointestinal gastroesophageal reflux 02/15/2017 Gastrointestinal No constipation 02/15/2017 Gastrointestinal No diarrhea 02/15/2017 Constitutional No night sweats 10/10/2015 Constitutional No anorexia 10/10/2015 Constitutional No chills 10/10/2015 Constitutional No recent illness 10/10/2015 Constitutional No fatigue 10/10/2015 Constitutional No fever 10/10/2015 Constitutional weight gain/obesity 10/10/2015 Constitutional No weight loss 10/10/2015 Eyes No eye discharge 10/10/2015 Eyes No eye floaters 10/10/2015 Eyes No eye pain 10/10/2015 Eyes No eye tearing 10/10/2015 Eyes No eyelid edema 10/10/2015 Eyes No eyelid erythema 10/10/2015 Eyes No eyelid pain 10/10/2015 Eyes No vision change 10/10/2015 Eyes No visual disturbance 10/10/2015 Ears/Nose/Throat/Neck No dental pain 10/10/2015 Ears/Nose/Throat/Neck No dizziness 10/10/2015 Ears/Nose/Throat/Neck No eustachian tube dysfunction 10/10/2015 Ears/Nose/Throat/Neck No facial pain 10/10/2015 Ears/Nose/Throat/Neck No facial swelling 10/10/2015 Ears/Nose/Throat/Neck No facial weakness 10/10/2015 Ears/Nose/Throat/Neck No headache 10/10/2015 Ears/Nose/Throat/Neck No jaw pain 10/10/2015 Ears/Nose/Throat/Neck No nasal allergies 10/10/2015 Ears/Nose/Throat/Neck No nasal discharge 10/10/2015 Ears/Nose/Throat/Neck No oral pain 10/10/2015 Ears/Nose/Throat/Neck No oral mass 10/10/2015 Ears/Nose/Throat/Neck No otalgia 10/10/2015 Ears/Nose/Throat/Neck No postnasal drip 10/10/2015 Ears/Nose/Throat/Neck No otorrhea 10/10/2015 Ears/Nose/Throat/Neck No sinusitis 10/10/2015 Ears/Nose/Throat/Neck No sore throat 10/10/2015 Ears/Nose/Throat/Neck No tinnitus 10/10/2015 Cardiovascular No arrhythmia 10/10/2015 Cardiovascular chest pain/pressure 10/10/2015 Cardiovascular No edema 10/10/2015 Cardiovascular No exercise intolerance 10/10/2015 Cardiovascular No orthopnea 10/10/2015 Cardiovascular palpitations 10/10/2015 Respiratory No asthma 10/10/2015 Respiratory No cough 10/10/2015 Respiratory No dyspnea 10/10/2015 Respiratory No pleuritic pain 10/10/2015 Respiratory No productive sputum 10/10/2015 Respiratory No wheezing 10/10/2015 Gastrointestinal No hemorrhoids 10/10/2015 Gastrointestinal No hepatitis 10/10/2015 Gastrointestinal No abdominal pain 10/10/2015 Gastrointestinal No constipation 10/10/2015 Gastrointestinal No diarrhea 10/10/2015 Gastrointestinal No gastroesophageal reflux 10/10/2015 Gastrointestinal No melena 10/10/2015 Gastrointestinal No nausea 10/10/2015 Gastrointestinal No vomiting 10/10/2015 Genitourinary/Nephrology No dysuria 10/10/2015 Genitourinary/Nephrology No nocturia 10/10/2015 Genitourinary/Nephrology No urinary incontinence 10/10/2015 Dermatologic No rash 10/10/2015 Dermatologic No scar 10/10/2015 Hematologic/Lymphatic No abnormal ecchymoses 10/10/2015 Hematologic/Lymphatic No petechiae 10/10/2015 Hematologic/Lymphatic No abnormal bleeding and bruising 10/10/2015 Hematologic/Lymphatic No anemia 10/10/2015 Hematologic/Lymphatic No lymph node enlargement/mass 10/10/2015 Musculoskeletal low back pain 10/25/2014 Musculoskeletal stiffness 10/25/2014 Musculoskeletal muscle spasm 10/25/2014 Neurologic No gait abnormality 10/25/2014 Musculoskeletal No muscle weakness 10/25/2014 Musculoskeletal back pain 08/27/2014 Musculoskeletal low back pain 08/27/2014 Constitutional No night sweats 06/09/2014 Constitutional No fatigue 06/09/2014 Constitutional No fever 06/09/2014 Constitutional No insomnia 06/09/2014 Constitutional No weight loss 06/09/2014 Eyes No eye pain 06/09/2014 Eyes No photophobia 06/09/2014 Eyes No vision change 06/09/2014 Eyes No visual disturbance 06/09/2014 Ears/Nose/Throat/Neck No hearing loss 06/09/2014 Ears/Nose/Throat/Neck No nasal discharge 06/09/2014 Ears/Nose/Throat/Neck No sinus congestion 06/09/2014 Ears/Nose/Throat/Neck No sore throat 06/09/2014 Cardiovascular No arrhythmia 06/09/2014 Cardiovascular No chest pain/pressure 06/09/2014 Cardiovascular No edema 06/09/2014 Cardiovascular No exercise intolerance 06/09/2014 Cardiovascular No orthopnea 06/09/2014 Cardiovascular No palpitations 06/09/2014 Respiratory No asthma 06/09/2014 Respiratory No cough 06/09/2014 Respiratory No dyspnea 06/09/2014 Respiratory No pleuritic pain 06/09/2014 Respiratory No productive sputum 06/09/2014 Respiratory No wheezing 06/09/2014 Gastrointestinal No hemorrhoids 06/09/2014 Gastrointestinal No hepatitis 06/09/2014 Gastrointestinal No abdominal pain 06/09/2014 Gastrointestinal No constipation 06/09/2014 Gastrointestinal No diarrhea 06/09/2014 Gastrointestinal gastroesophageal reflux 06/09/2014 Gastrointestinal No melena 06/09/2014 Gastrointestinal No nausea 06/09/2014 Gastrointestinal No vomiting 06/09/2014 Genitourinary/Nephrology No dysuria 06/09/2014 Genitourinary/Nephrology No nocturia 06/09/2014 Genitourinary/Nephrology No urinary incontinence 06/09/2014 Musculoskeletal No muscle weakness 06/09/2014 Musculoskeletal No myalgias 06/09/2014 Musculoskeletal No stiffness 06/09/2014 Musculoskeletal No swelling 06/09/2014 Dermatologic rash 06/09/2014 Dermatologic No scar 06/09/2014 Neurologic No dizziness 06/09/2014 Neurologic No headache 06/09/2014 Neurologic No neck pain 06/09/2014 Neurologic No syncope 06/09/2014 Psychiatric No anxiety 06/09/2014 Psychiatric No depression 06/09/2014 Endocrine No goiter 06/09/2014 Endocrine No hyperglycemia 06/09/2014 Endocrine No hypoglycemia 06/09/2014 Hematologic/Lymphatic No abnormal ecchymoses 06/09/2014 Hematologic/Lymphatic No petechiae 06/09/2014 Hematologic/Lymphatic No abnormal bleeding and bruising 06/09/2014 Hematologic/Lymphatic No anemia 06/09/2014 Hematologic/Lymphatic No lymph node enlargement/mass 06/09/2014 Allergy/Immunology No food allergy 06/09/2014 Dermatologic tinea 06/09/2014 Dermatologic No mole change 06/09/2014 Musculoskeletal sciatica 06/09/2014 Neurologic pain, limb 06/09/2014 Neurologic paresthesia 06/09/2014 Gastrointestinal dysphagia 06/09/2014 Physical Exam Exam Name System Name Item Name Status Result Effective Dates Notes Full Exam - General Constitutional general appearance Overall: well nourished 03/19/2019 None Full Exam - General Constitutional general appearance Overall: in no acute distress 03/19/2019 None Full Exam - General Respiratory respiratory effort/rhythm Overall: no retractions 03/19/2019 None Full Exam - General Respiratory respiratory effort/rhythm Overall: normal rate 03/19/2019 None Full Exam - General Respiratory auscultation Overall: breath sounds clear bilaterally 03/19/2019 None Full Exam - General Cardiovascular auscultation of heart Overall: regular rate 03/19/2019 None Full Exam - General Cardiovascular auscultation of heart Overall: no murmurs 03/19/2019 None Full Exam - General Ears/Nose/Throat otoscopic exam Right tympanic membrane: a normal exam 03/19/2019 None Full Exam - General Ears/Nose/Throat otoscopic exam Right tympanic membrane: myringotomy tube 03/19/2019 None Full Exam - General Ears/Nose/Throat otoscopic exam Left tympanic membrane: erythematous 03/19/2019 None Full Exam - General Ears/Nose/Throat otoscopic exam Left tympanic membrane: perforated 03/19/2019 None Full Exam - General Ears/Nose/Throat otoscopic exam Left tympanic membrane: bulging 03/19/2019 None Full Exam - General Ears/Nose/Throat otoscopic exam Otorrhea: left 03/19/2019 None Full Exam - General Ears/Nose/Throat otoscopic exam Otorrhea: purulent 03/19/2019 None Full Exam - General Ears/Nose/Throat otoscopic exam Otorrhea: thick 03/19/2019 None Full Exam - General Ears/Nose/Throat otoscopic exam Perforation: left 03/19/2019 None Full Exam - General Ears/Nose/Throat oral cavity/pharynx/larynx Oropharynx: a normal exam 03/19/2019 None Full Exam - General Lymphatic neck nodes Overall: anterior cervical chain benign 03/19/2019 None Full Exam - General Lymphatic neck nodes Overall: posterior cervical chain benign 03/19/2019 None Full Exam - General Neurologic mental status Overall: alert 03/19/2019 None Full Exam - General Neurologic mental status Overall: oriented 03/19/2019 None Full Exam - General Constitutional general appearance Overall: well nourished 10/23/2018 None Full Exam - General Constitutional general appearance Overall: well developed 10/23/2018 None Full Exam - General Constitutional general appearance Overall: in no acute distress 10/23/2018 None Full Exam - General Eyes conjunctiva/eyelids Overall: conjunctiva clear 10/23/2018 None Full Exam - General Eyes conjunctiva/eyelids Overall: cornea clear 10/23/2018 None Full Exam - General Eyes conjunctiva/eyelids Overall: eyelids normal 10/23/2018 None Full Exam - General Eyes pupils and irises Overall: pupils equal, round, reactive to light and accomodation 10/23/2018 None Full Exam - General Ears/Nose/Throat otoscopic exam Left tympanic membrane: myringotomy tube 10/23/2018 None Full Exam - General Ears/Nose/Throat otoscopic exam Right tympanic membrane: myringotomy tube 10/23/2018 no drainage, redness, swelling Full Exam - General Ears/Nose/Throat oral cavity/pharynx/larynx Overall: oral mucosa clear 10/23/2018 None Full Exam - General Neck inspection of neck Overall: normal size 10/23/2018 None Full Exam - General Neck inspection of neck Overall: normal appearance 10/23/2018 None Full Exam - General Respiratory auscultation Overall: breath sounds clear bilaterally 10/23/2018 None Full Exam - General Respiratory respiratory effort/rhythm Overall: no retractions 10/23/2018 None Full Exam - General Respiratory respiratory effort/rhythm Overall: normal rate 10/23/2018 None Full Exam - General Cardiovascular auscultation of heart Overall: regular rate 10/23/2018 None Full Exam - General Cardiovascular auscultation of heart Overall: normal heart sounds 10/23/2018 None Full Exam - General Cardiovascular extremities Overall: No edema 10/23/2018 None Full Exam - General Abdomen abdominal exam Overall: no tenderness 10/23/2018 None Full Exam - General Abdomen abdominal exam Overall: soft 10/23/2018 None Full Exam - General Abdomen abdominal exam Overall: no masses 10/23/2018 None Full Exam - General Abdomen abdominal exam Overall: normal bowel sounds 10/23/2018 None Full Exam - General Lymphatic neck nodes Overall: anterior cervical chain benign 10/23/2018 None Full Exam - General Lymphatic neck nodes Overall: posterior cervical chain benign 10/23/2018 None Full Exam - General Musculoskeletal head and neck Overall: head atraumatic 10/23/2018 None Full Exam - General Musculoskeletal head and neck Overall: TMJ benign 10/23/2018 None Full Exam - General Musculoskeletal head and neck Overall: cervical spine benign 10/23/2018 None Full Exam - General Musculoskeletal gait and station Overall: normal gait 10/23/2018 None Full Exam - General Musculoskeletal gait and station Overall: normal station 10/23/2018 None Full Exam - General Integument inspection of skin Overall: no rash, lesions 10/23/2018 None Full Exam - General Neurologic mental status Overall: alert 10/23/2018 None Full Exam - General Neurologic mental status Overall: oriented 10/23/2018 None Full Exam - General Psychiatric orientation/consciousness Overall: oriented to person, place and time 10/23/2018 None Full Exam - General Psychiatric mood and affect Overall: normal mood and affect 10/23/2018 None Full Exam - General Psychiatric judgment/insight Overall: judgment and insight intact 10/23/2018 None Full Exam - General Constitutional general appearance Overall: well nourished 06/16/2018 None Full Exam - General Constitutional general appearance Overall: in no acute distress 06/16/2018 None Full Exam - General Musculoskeletal gait and station Gait: antalgic 06/16/2018 None Full Exam - General Musculoskeletal spine, ribs and pelvis Spine: a normal exam 06/16/2018 None Full Exam - General Musculoskeletal spine, ribs and pelvis Sacroiliac joints: tender left sacroiliac joint 06/16/2018 None Full Exam - General Musculoskeletal spine, ribs and pelvis Spine: positive straight leg raise - left 06/16/2018 None Full Exam - General Neurologic mental status Overall: alert 06/16/2018 None Full Exam - General Neurologic mental status Overall: oriented 06/16/2018 None Full Exam - General Constitutional general appearance Overall: well nourished 02/18/2018 None Full Exam - General Constitutional general appearance Overall: well developed 02/18/2018 None Full Exam - General Constitutional general appearance Overall: in no acute distress 02/18/2018 None Full Exam - General Neurologic mental status Overall: alert 02/18/2018 None Full Exam - General Neurologic mental status Overall: oriented 02/18/2018 None Full Exam - General Psychiatric mood and affect Overall: normal mood and affect 02/18/2018 None Full Exam - General Respiratory auscultation Overall: breath sounds clear bilaterally 02/18/2018 None Full Exam - General Cardiovascular auscultation of heart Overall: regular rate 02/18/2018 None Full Exam - General Cardiovascular auscultation of heart Overall: normal heart sounds 02/18/2018 None Full Exam - General Cardiovascular auscultation of heart Overall: no murmurs 02/18/2018 None Full Exam - General Cardiovascular extremities Overall: no clubbing 02/18/2018 None Full Exam - General Cardiovascular extremities Overall: No edema 02/18/2018 None Full Exam - General Cardiovascular extremities Overall: No cyanosis 02/18/2018 None Full Exam - General Neck inspection of neck Overall: normal size 02/18/2018 None Full Exam - General Neck inspection of neck Overall: no masses 02/18/2018 None Full Exam - General Ears/Nose/Throat otoscopic exam Overall: external auditory canals clear 02/18/2018 None Full Exam - General Ears/Nose/Throat otoscopic exam Overall: tympanic membranes clear 02/18/2018 None Full Exam - General Ears/Nose/Throat internal nose Overall: bilateral nasal cavities clear 02/18/2018 None Full Exam - General Ears/Nose/Throat oral cavity/pharynx/larynx Overall: oral mucosa clear 02/18/2018 None Full Exam - General Abdomen abdominal exam Overall: no masses 02/18/2018 None Full Exam - General Abdomen abdominal exam Overall: no tenderness 02/18/2018 None Full Exam - General Abdomen abdominal exam Overall: normal bowel sounds 02/18/2018 None Full Exam - General Abdomen abdominal exam Overall: soft 02/18/2018 None Full Exam - General Musculoskeletal gait and station Overall: normal gait 02/18/2018 None Full Exam - General Musculoskeletal gait and station Overall: normal station 02/18/2018 None Full Exam - General Integument inspection of skin Location: right leg 02/18/2018 medial top of foot with 1cm verrucous growth Full Exam - General Constitutional general appearance Overall: well nourished 08/15/2017 None Full Exam - General Constitutional general appearance Overall: well developed 08/15/2017 None Full Exam - General Constitutional general appearance Overall: in no acute distress 08/15/2017 None Full Exam - General Ears/Nose/Throat otoscopic exam Overall: external auditory canals clear 08/15/2017 None Full Exam - General Ears/Nose/Throat otoscopic exam Overall: tympanic membranes clear 08/15/2017 None Full Exam - General Ears/Nose/Throat internal nose Turbinates: hypertrophy 08/15/2017 None Full Exam - General Ears/Nose/Throat internal nose Drainage: clear 08/15/2017 None Full Exam - General Ears/Nose/Throat oral cavity/pharynx/larynx Oropharynx: erythema 08/15/2017 None Full Exam - General Neck inspection of neck Overall: normal size 08/15/2017 None Full Exam - General Neck inspection of neck Overall: no masses 08/15/2017 None Full Exam - General Respiratory auscultation Overall: breath sounds clear bilaterally 08/15/2017 None Full Exam - General Cardiovascular auscultation of heart Overall: regular rate 08/15/2017 None Full Exam - General Cardiovascular auscultation of heart Overall: normal heart sounds 08/15/2017 None Full Exam - General Cardiovascular auscultation of heart Overall: no murmurs 08/15/2017 None Full Exam - General Lymphatic neck nodes Left anterior cervical chain: shotty 08/15/2017 None Full Exam - General Lymphatic neck nodes Left anterior cervical chain: tender 08/15/2017 None Full Exam - General Lymphatic neck nodes Right anterior cervical chain: shotty 08/15/2017 None Full Exam - General Lymphatic neck nodes Right anterior cervical chain: tender 08/15/2017 None Full Exam - General Neurologic mental status Overall: alert 08/15/2017 None Full Exam - General Neurologic mental status Overall: oriented 08/15/2017 None Full Exam - General Psychiatric mood and affect Overall: normal mood and affect 08/15/2017 None Full Exam - General Ears/Nose/Throat oral cavity/pharynx/larynx Soft palate: petechiae 08/15/2017 None Full Exam - General Constitutional general appearance Overall: well nourished 02/15/2017 None Full Exam - General Constitutional general appearance Overall: well developed 02/15/2017 None Full Exam - General Constitutional general appearance Overall: in no acute distress 02/15/2017 None Full Exam - General Eyes pupils and irises Overall: pupils equal, round, reactive to light and accomodation 02/15/2017 None Full Exam - General Ears/Nose/Throat otoscopic exam Overall: external auditory canals clear 02/15/2017 None Full Exam - General Ears/Nose/Throat otoscopic exam Overall: tympanic membranes clear 02/15/2017 scarring, blue tubes bilat Full Exam - General Neck thyroid Overall: normal size 02/15/2017 None Full Exam - General Neck thyroid Overall: normal consistency 02/15/2017 None Full Exam - General Neck thyroid Overall: nontender 02/15/2017 None Full Exam - General Neck thyroid Overall: no mass lesions 02/15/2017 None Full Exam - General Respiratory auscultation Overall: breath sounds clear bilaterally 02/15/2017 None Full Exam - General Cardiovascular auscultation of heart Overall: regular rate 02/15/2017 None Full Exam - General Cardiovascular auscultation of heart Overall: normal heart sounds 02/15/2017 None Full Exam - General Cardiovascular auscultation of heart Overall: no murmurs 02/15/2017 None Full Exam - General Abdomen abdominal exam Overall: no tenderness 02/15/2017 None Full Exam - General Abdomen abdominal exam Overall: soft 02/15/2017 None Full Exam - General Abdomen abdominal exam Overall: no masses 02/15/2017 None Full Exam - General Abdomen abdominal exam Overall: normal bowel sounds 02/15/2017 None Full Exam - General Cardiovascular extremities Overall: No edema 02/15/2017 None Full Exam - General Psychiatric orientation/consciousness Overall: oriented to person, place and time 02/15/2017 None Full Exam - General Neurologic mental status Overall: alert 02/15/2017 None Full Exam - General Neurologic mental status Overall: oriented 02/15/2017 None Full Exam - General Musculoskeletal gait and station Overall: normal gait 02/15/2017 None Full Exam - General Musculoskeletal gait and station Overall: normal station 02/15/2017 None Full Exam - General Constitutional general appearance Overall: in no acute distress 10/10/2015 None Full Exam - General Constitutional general appearance Overall: well developed 10/10/2015 None Full Exam - General Constitutional general appearance Overall: well nourished 10/10/2015 None Full Exam - General Eyes conjunctiva/eyelids Overall: conjunctiva clear 10/10/2015 None Full Exam - General Eyes conjunctiva/eyelids Overall: eyelids normal 10/10/2015 None Full Exam - General Eyes pupils and irises Overall: pupils equal, round, reactive to light and accomodation 10/10/2015 None Full Exam - General Ears/Nose/Throat external ear Overall: normal appearance 10/10/2015 None Full Exam - General Ears/Nose/Throat external nose Overall: benign appearance 10/10/2015 None Full Exam - General Ears/Nose/Throat otoscopic exam Overall: external auditory canals clear 10/10/2015 None Full Exam - General Ears/Nose/Throat otoscopic exam Overall: tympanic membranes clear 10/10/2015 None Full Exam - General Ears/Nose/Throat internal nose Overall: bilateral nasal cavities clear 10/10/2015 None Full Exam - General Ears/Nose/Throat internal nose Overall: no drainage 10/10/2015 None Full Exam - General Ears/Nose/Throat lips/teeth/gingiva Overall: benign lips 10/10/2015 None Full Exam - General Ears/Nose/Throat lips/teeth/gingiva Overall: normal dentition 10/10/2015 None Full Exam - General Ears/Nose/Throat oral cavity/pharynx/larynx Overall: oral mucosa clear 10/10/2015 None Full Exam - General Ears/Nose/Throat oral cavity/pharynx/larynx Overall: oropharyngeal mucosa clear 10/10/2015 None Full Exam - General Neck thyroid Overall: normal size 10/10/2015 None Full Exam - General Neck thyroid Overall: normal consistency 10/10/2015 None Full Exam - General Respiratory auscultation Overall: breath sounds clear bilaterally 10/10/2015 None Full Exam - General Respiratory respiratory effort/rhythm Overall: no retractions 10/10/2015 None Full Exam - General Respiratory respiratory effort/rhythm Overall: normal rate 10/10/2015 None Full Exam - General Cardiovascular auscultation of heart Overall: regular rate 10/10/2015 None Full Exam - General Cardiovascular auscultation of heart Overall: normal heart sounds 10/10/2015 None Full Exam - General Abdomen abdominal exam Overall: no tenderness 10/10/2015 None Full Exam - General Abdomen abdominal exam Overall: soft 10/10/2015 None Full Exam - General Abdomen abdominal exam Overall: no masses 10/10/2015 None Full Exam - General Abdomen abdominal exam Overall: normal bowel sounds 10/10/2015 None Full Exam - General Abdomen liver and spleen exam Overall: no hepatosplenomegaly 10/10/2015 None Full Exam - General Lymphatic neck nodes Overall: anterior cervical chain benign 10/10/2015 None Full Exam - General Lymphatic neck nodes Overall: posterior cervical chain benign 10/10/2015 None Full Exam - General Integument inspection of skin Overall: no rash, lesions 10/10/2015 None Full Exam - General Psychiatric mood and affect Overall: normal mood and affect 10/10/2015 None Full Exam - General Musculoskeletal spine, ribs and pelvis Spine: tender @ lumbar spine 10/25/2014 None Full Exam - General Musculoskeletal spine, ribs and pelvis Spine: tender @ facet joint 10/25/2014 None Full Exam - General Musculoskeletal spine, ribs and pelvis Spine: decreased flexion 10/25/2014 None Full Exam - General Musculoskeletal spine, ribs and pelvis Spine: decreased extension 10/25/2014 None Full Exam - General Musculoskeletal spine, ribs and pelvis Spine: positive straight leg raise - left 10/25/2014 None Full Exam - General Constitutional general appearance Overall: well nourished 10/25/2014 None Full Exam - General Constitutional general appearance Overall: well developed 10/25/2014 None Full Exam - General Constitutional general appearance Overall: in no acute distress 10/25/2014 None Full Exam - General Respiratory auscultation Overall: breath sounds clear bilaterally 10/25/2014 None Full Exam - General Psychiatric mood and affect Overall: normal mood and affect 10/25/2014 None Full Exam - General Cardiovascular auscultation of heart Overall: regular rate 10/25/2014 None Full Exam - General Cardiovascular auscultation of heart Overall: normal heart sounds 10/25/2014 None Full Exam - General Cardiovascular auscultation of heart Overall: no murmurs 10/25/2014 None Full Exam - General Neurologic deep tendon reflexes Overall: deep tendon reflexes intact 10/25/2014 None Full Exam - General Constitutional general appearance Overall: well nourished 08/27/2014 None Full Exam - General Constitutional general appearance Overall: well developed 08/27/2014 None Full Exam - General Constitutional general appearance Overall: in no acute distress 08/27/2014 None Full Exam - General Musculoskeletal spine, ribs and pelvis Sacroiliac joints: tender left sacroiliac joint 08/27/2014 None Full Exam - General Musculoskeletal spine, ribs and pelvis Spine: tender @ lumbar spine 08/27/2014 None Full Exam - General Musculoskeletal spine, ribs and pelvis Spine: decreased flexion 08/27/2014 None Full Exam - General Musculoskeletal spine, ribs and pelvis Spine: full extension 08/27/2014 None Full Exam - General Musculoskeletal spine, ribs and pelvis Spine: full lateral bending 08/27/2014 None Full Exam - General Musculoskeletal spine, ribs and pelvis Spine: positive straight leg raise - left 08/27/2014 None Full Exam - General Psychiatric mood and affect Overall: normal mood and affect 08/27/2014 None Full Exam - General Musculoskeletal gait and station Gait: symmetric 08/27/2014 None Full Exam - General Respiratory auscultation Overall: breath sounds clear bilaterally 08/27/2014 None Full Exam - General Cardiovascular auscultation of heart Overall: regular rate 08/27/2014 None Full Exam - General Cardiovascular auscultation of heart Overall: normal heart sounds 08/27/2014 None Full Exam - General Neurologic deep tendon reflexes Overall: deep tendon reflexes intact 08/27/2014 None Full Exam - General Constitutional general appearance Overall: well nourished 06/09/2014 None Full Exam - General Constitutional general appearance Overall: well developed 06/09/2014 None Full Exam - General Constitutional general appearance Overall: in no acute distress 06/09/2014 None Full Exam - General Ears/Nose/Throat otoscopic exam Overall: external auditory canals clear 06/09/2014 None Full Exam - General Ears/Nose/Throat otoscopic exam Overall: tympanic membranes clear 06/09/2014 None Full Exam - General Ears/Nose/Throat internal nose Overall: bilateral nasal cavities clear 06/09/2014 None Full Exam - General Ears/Nose/Throat oral cavity/pharynx/larynx Overall: oral mucosa clear 06/09/2014 None Full Exam - General Neck inspection of neck Overall: normal size 06/09/2014 None Full Exam - General Neck inspection of neck Overall: no masses 06/09/2014 None Full Exam - General Respiratory auscultation Overall: breath sounds clear bilaterally 06/09/2014 None Full Exam - General Cardiovascular auscultation of heart Overall: regular rate 06/09/2014 None Full Exam - General Cardiovascular auscultation of heart Overall: normal heart sounds 06/09/2014 None Full Exam - General Cardiovascular auscultation of heart Overall: no murmurs 06/09/2014 None Full Exam - General Cardiovascular extremities Overall: no clubbing 06/09/2014 None Full Exam - General Cardiovascular extremities Overall: No edema 06/09/2014 None Full Exam - General Cardiovascular extremities Overall: No cyanosis 06/09/2014 None Full Exam - General Abdomen abdominal exam Overall: no masses 06/09/2014 None Full Exam - General Abdomen abdominal exam Overall: no tenderness 06/09/2014 None Full Exam - General Abdomen abdominal exam Overall: normal bowel sounds 06/09/2014 None Full Exam - General Abdomen abdominal exam Overall: soft 06/09/2014 None Full Exam - General Neurologic mental status Overall: alert 06/09/2014 None Full Exam - General Neurologic mental status Overall: oriented 06/09/2014 None Full Exam - General Psychiatric mood and affect Overall: normal mood and affect 06/09/2014 None Full Exam - General Musculoskeletal gait and station Overall: normal gait 06/09/2014 None Full Exam - General Musculoskeletal gait and station Overall: normal station 06/09/2014 None Full Exam - General Musculoskeletal spine, ribs and pelvis Spine: tender @ lumbar spine 06/09/2014 None Full Exam - General Musculoskeletal spine, ribs and pelvis Sacroiliac joints: tender left sacroiliac joint 06/09/2014 and piriformis Full Exam - General Integument inspection of skin Location: diffuse 06/09/2014 moles Full Exam - General Integument inspection of skin Location: back 06/09/2014 central with large softball sized scaling area with central clearing and demarcated border Procedures Procedure Codes Date CEFTRIAXONE SODIUM INJECTION CPT-4: J0696 03/19/2019 THER/PROPH/DIAG INJ SC/IM CPT-4: 11618 03/19/2019 STREP A ASSAY W/OPTIC CPT- 4: 41288 10/23/2018 THER/PROPH/DIAG INJ SC/IM CPT-4: 97168 06/16/2018 TRIAMCINOLONE ACET INJ NOS CPT-4: J3301 06/16/2018 DEXAMETHASONE SODIUM PHOS CPT-4: J1100 06/16/2018 THER/PROPH/DIAG INJ SC/IM CPT-4: 35142 01/02/2016 TRIAMCINOLONE ACET INJ NOS CPT-4: J3301 01/02/2016 INCISE FLEXOR CARPI RADIALIS CPT-4: 66616 Unknown REMOVAL OF ADENOIDS CPT- 4: 84487 Unknown SHOULDER ARTHROSCOPY/SURGERY CPT-4: 68970 Unknown Vital Signs Date Vital 03/19/2019 Blood Pressure 1: 144/98 Code: 8480-6 Heart Rate 1: 80 bpm SpO2: 97% Temperature: 36.3 (C) / 97.3 (F) Weight: 255 lbs 10/23/2018 Blood Pressure 1: 130/100 Code: 8480-6 Heart Rate 1: 78 bpm Respiratory Rate: 18 bpm SpO2: 97% Temperature: 36.7 (C) / 98.0 (F) Weight: 254 lbs 06/16/2018 Blood Pressure 1: 118/80 Code: 8480-6 Heart Rate 1: 79 bpm Respiratory Rate: 20 bpm SpO2: 97% Temperature: 36.7 (C) / 98.1 (F) Weight: 252 lbs 02/18/2018 Blood Pressure 1: 126/82 Code: 8480-6 BMI: 34.2 Code: 19175-0 Heart Rate 1: 76 bpm Height: 6' Respiratory Rate: 20 bpm SpO2: 97% Temperature: 36.6 (C) / 97.9 (F) Weight: 252 lbs 08/15/2017 Blood Pressure 1: 126/86 Code: 8480-6 BMI: 33.0 Code: 90424-7 Heart Rate 1: 80 bpm Height: 6' Respiratory Rate: 20 bpm SpO2: 97% Temperature: 36.9 (C) / 98.4 (F) Weight: 243 lbs 02/15/2017 Blood Pressure 1: 132/84 Code: 8480-6 BMI: 32.0 Code: 17451-5 Heart Rate 1: 86 bpm Height: 6' Respiratory Rate: 20 bpm SpO2: 97% Temperature: 36.4 (C) / 97.6 (F) Weight: 236 lbs 10/10/2015 Blood Pressure 1: 136/82 Code: 8480-6 BMI: 32.5 Code: 28063-4 Heart Rate 1: 80 bpm Height: 6' Respiratory Rate: 24 bpm SpO2: 97% Temperature: 36.4 (C) / 97.6 (F) Weight: 240 lbs 10/25/2014 Blood Pressure 1: 142/86 Code: 8480-6 BMI: 32.6 Code: 37215-8 Heart Rate 1: 80 bpm Height: 5'11" Respiratory Rate: 20 bpm Temperature: 36.4 (C) / 97.6 (F) Weight: 234 lbs 08/27/2014 Blood Pressure 1: 132/88 Code: 8480-6 BMI: 32.2 Code: 10602-8 Heart Rate 1: 66 bpm Height: 5'11" Respiratory Rate: 18 bpm Temperature: 36.6 (C) / 97.9 (F) Weight: 231 lbs 06/09/2014 Blood Pressure 1: 124/82 Code: 8480-6 BMI: 31.7 Code: 38228-1 Heart Rate 1: 98 bpm Height: 5'11" Respiratory Rate: 20 bpm Temperature: 36.3 (C) / 97.3 (F) Weight: 227 lbs Functional Status No Functional Status data History of Present Illness Symptom Name Status Result Effective Date Notes Quality acute 03/19/2019 None Onset of Symptom 4 days ago 03/19/2019 None Location on the left 03/19/2019 None Quality acute 03/19/2019 None Onset of Symptom 4 days ago 03/19/2019 None Onset of Symptom 5 days ago 10/23/2018 None Onset of Symptom 4-5 days ago 10/23/2018 None low back pain Onset of Symptom 2 months ago 06/16/2018 None gastroesophageal reflux Quality chronic 02/18/2018 None gastroesophageal reflux Quality stable 02/18/2018 None well man exam (18-39 years) Control none 02/18/2018 None well man exam (18-39 years) Nutrition and Exercise overweight 02/18/2018 None well man exam (18-39 years) Nutrition and Exercise balanced nutrition 02/18/2018 None sore throat Location diffusely 08/15/2017 None sore throat Quality sharp 08/15/2017 None sore throat Quality stabbing 08/15/2017 None sore throat Quality worsening 08/15/2017 None sore throat Onset and Resolution gradual in onset 08/15/2017 None sore throat Onset of Symptom 3 days ago 08/15/2017 None sinus congestion Location on both sides 08/15/2017 None sinus congestion Quality fullness 08/15/2017 None sinus congestion Quality pain 08/15/2017 None sinus congestion Quality pressure 08/15/2017 None sinus congestion Onset and Resolution ongoing 08/15/2017 Has been taking dayquil, nyquil and cough drops sinus congestion Onset of Symptom 5 days ago 08/15/2017 None fever Quality acute 08/15/2017 None sore throat Quality acute 08/15/2017 None sore throat Onset and Resolution sudden in onset 08/15/2017 None gastroesophageal reflux Quality acute 02/15/2017 None gastroesophageal reflux Quality regurgitation of acid 02/15/2017 None gastroesophageal reflux Quality stable 02/15/2017 has had 5-6 years off and on, worse 3-4 years ago gastroesophageal reflux Alleviating Factors proton pump inhibitor 02/15/2017 None well man exam (18-39 years) Sexual Activity is sexually active 02/15/2017 None well man exam (18-39 years) Control none 02/15/2017 None well man exam (18-39 years) Cardiovascular Risk Factors family history of cardiovascular disease 02/15/2017 HTN on mother's side (brother, mother, MGM) and some unknown heart issue with PGF well man exam (18-39 years) Lifestyle no history of physical abuse 02/15/2017 None well man exam (18-39 years) Lifestyle regular seatbelt use 02/15/2017 None well man exam (18-39 years) Nutrition and Exercise balanced nutrition 02/15/2017 improved well man exam (18-39 years) Immunizations tetanus-diphtheria booster 02/15/2017 less than 10 years well man exam (18-39 years) Health Guidance HIV precautions 02/15/2017 None well man exam (18-39 years) Health Guidance STD precautions 02/15/2017 None well man exam (18-39 years) Health Guidance genetic counseling 02/15/2017 None well man exam (18-39 years) Health Guidance tobacco, drugs and alcohol avoidance 02/15/2017 None well man exam (18-39 years) Health Guidance regular exercise 02/15/2017 None well man exam (18-39 years) Health Guidance safety belt use 02/15/2017 None well man exam (18-39 years) Health Guidance helmet use 02/15/2017 None well man exam (18-39 years) Health Guidance hearing loss prevention 02/15/2017 None well man exam (18-39 years) Health Guidance limiting UV/sun exposure 02/15/2017 None well man exam (18-39 years) Health Guidance suicide prevention 02/15/2017 None well man exam (18-39 years) Health Guidance depression symptoms 02/15/2017 None palpitations Quality acute 10/10/2015 None palpitations Quality awareness of heartbeat 10/10/2015 None palpitations Quality rapid and regular beats 10/10/2015 None palpitations Onset and Resolution ongoing 10/10/2015 None palpitations Onset of Symptom 1 year ago 10/10/2015 None well man exam (18-39 years) Sexual Activity is sexually active 10/10/2015 None well man exam (18-39 years) Control regular use 10/10/2015 None well man exam (18-39 years) Sexual Activity is monogamous 10/10/2015 None well man exam (18-39 years) Lifestyle no history of physical abuse 10/10/2015 None well man exam (18-39 years) Lifestyle no history of sexual abuse 10/10/2015 None well man exam (18-39 years) Lifestyle no history of verbal abuse 10/10/2015 None well man exam (18-39 years) Lifestyle regular seatbelt use 10/10/2015 None well man exam (18-39 years) Lifestyle satisfactory work experience 10/10/2015 None well man exam (18-39 years) Nutrition and Exercise overweight 10/10/2015 None well man exam (18-39 years) Cardiovascular Risk Factors family history of cardiovascular disease 10/10/2015 None well man exam (18-39 years) Cardiovascular Risk Factors hypertension 10/10/2015 None well man exam (18-39 years) Cardiovascular Risk Factors dyslipidemia 10/10/2015 None well man exam (18-39 years) Cardiovascular Risk Factors obesity 10/10/2015 None well man exam (18-39 years) Reproductive System Development normal development 10/10/2015 None well man exam (18-39 years) Health Guidance regular exercise 10/10/2015 None well man exam (18-39 years) Health Guidance tobacco, drugs and alcohol avoidance 10/10/2015 None well man exam (18-39 years) Health Guidance cholesterol level and lipid panel 10/10/2015 None back pain Location lumbar-sacral spine 10/25/2014 None back pain Location in the left lower back area 10/25/2014 None back pain Quality burning 10/25/2014 None back pain Onset and Resolution ongoing 10/25/2014 None back pain Location lumbar-sacral spine 08/27/2014 None back pain Location in the left lower back area 08/27/2014 None back pain Quality aching 08/27/2014 None back pain Quality sharp 08/27/2014 None back pain Quality tight 08/27/2014 None back pain Onset of Symptom 4-5 months ago 08/27/2014 None leg pain/sciatica Location left leg sciatica 08/27/2014 None leg pain/sciatica Radiating the left lateral thigh 08/27/2014 None leg pain/sciatica Quality acute 08/27/2014 None leg pain/sciatica Quality stable 08/27/2014 None leg pain/sciatica Onset and Resolution ongoing 08/27/2014 None leg pain/sciatica Radiating the left buttock 06/09/2014 None leg pain/sciatica Radiating the left posterior thigh 06/09/2014 None leg pain/sciatica Radiating the left lateral calf 06/09/2014 None leg pain/sciatica Radiating the left lateral foot 06/09/2014 None tinea Onset of Symptom 3 months ago 06/09/2014 None gastroesophageal reflux Onset of Symptom 8 years ago, getting worse 06/09/2014 None gastroesophageal reflux Onset and Resolution ongoing 06/09/2014 None gastroesophageal reflux Quality chronic 06/09/2014 None leg pain/sciatica Onset and Resolution ongoing 06/09/2014 since September--has seen chiropracter mole check Location-Major in a generalized area 06/09/2014 None tinea Location on the back 06/09/2014 None tinea Onset and Resolution ongoing 06/09/2014 None leg pain/sciatica Quality chronic 06/09/2014 None leg pain/sciatica Quality constant 06/09/2014 None leg pain/sciatica Severity mild 06/09/2014 None tinea Quality scaly 06/09/2014 None mole check Quality not changing 06/09/2014 None mole check Quality chronic 06/09/2014 None gastroesophageal reflux Onset of Symptom during adulthood 06/09/2014 None gastroesophageal reflux Quality worsening 06/09/2014 now having dysphagia at times gastroesophageal reflux Pertinent Findings dysphagia 06/09/2014 None gastroesophageal reflux Alleviating Factors proton pump inhibitor 06/09/2014 using otc Advance Directives No Advance Directive data Encounters Encounter Performer Location Codes Date ([id number]) OFFICE/OUTPATIENT VISIT EST Diagnosis: Acute suppurative otitis media with spontaneous rupture of ear drum, left ear[ICD10: H66.012] Diagnosis: Essential (primary) hypertension[ICD10: I10] Danielle SMITHLINE [employer] CPT-4: 18806 03/19/2019 ([id number]) OFFICE/OUTPATIENT VISIT EST Diagnosis: Acute upper respiratory infection, unspecified[ICD10: J06.9] Diagnosis: Acute pharyngitis, unspecified[ICD10: J02.9] Carmen TUCKER [employer] CPT-4: 35246 10/23/2018 ([id number]) OFFICE/OUTPATIENT VISIT EST Diagnosis: Lumbago with sciatica, left side[ICD10: M54.42] Danielle SMITHLINE [facility] CPT-4: 89446 06/16/2018 ([id number]) PREV VISIT EST AGE 18-39 Diagnosis: Encounter for general adult medical examination without abnormal findings[ICD10: Z00.00] Diagnosis: Gastro-esophageal reflux disease without esophagitis[ICD10: K21.9] Diagnosis: Mixed hyperlipidemia[ICD10: E78.2] Caitlin Tyreezana TUCKER [facility] CPT-4: 88923 02/18/2018 ([id number]) OFFICE/OUTPATIENT VISIT EST Diagnosis: Acute pharyngitis, unspecified[ICD10: J02.9] Caitlin TUCKER [employer] [facility] CPT-4: 48376 08/15/2017 ([id number]) PREV VISIT EST AGE 18-39 Diagnosis: Encounter for general adult medical examination without abnormal findings[ICD10: Z00.00] Diagnosis: Gastro-esophageal reflux disease without esophagitis[ICD10: K21.9] Hetal TUCKER [employer] [facility] CPT-4: 43909 02/15/2017 ([id number]) OFFICE/OUTPATIENT VISIT EST Diagnosis: Allergic rhinitis, unspecified[ICD10: J30.9] Caitlin ADAIR [facility] CPT-4: 14248 01/02/2016 ([id number]) PREV VISIT EST AGE 18-39 Diagnosis: Encounter for general adult medical examination with abnormal findings[ICD10: Z00.01] Diagnosis: Mixed hyperlipidemia[ICD10: E78.2] Diagnosis: Hyperkalemia[ICD10: E87.5] Diagnosis: Hypoglycemia, unspecified[ICD10: E16.2] Diagnosis: Chest pain, unspecified[ICD10: R07.9] Diagnosis: Palpitations[ICD10: R00.2] Gia ADAIR [facility] CPT-4: 03983 10/10/2015 ([id number]) OFFICE/OUTPATIENT VISIT EST Diagnosis: SCIATICA[ICD9: 724.3] Rita ADAIR [facility] CPT-4: 22043 10/25/2014 OFFICE/OUTPATIENT VISIT EST Diagnosis: SCIATICA[ICD9: 724.3] Rita ADAIR [facility] CPT-4: 10555 08/27/2014 ([id number]) OFFICE/OUTPATIENT VISIT NEW Diagnosis: SCIATICA[ICD9: 724.3] Diagnosis: GERD[ICD9: 530.81] Diagnosis: Tinea versicolor[ICD9: 111.0] Caitlin ADAIR [facility] CPT-4: 98424 06/09/2014 ([id number]) OFFICE/OUTPATIENT VISIT NEW Diagnosis: Tinea versicolor[ICD9: 111.0] Diagnosis: GERD[ICD9: 530.81] Diagnosis: SCIATICA[ICD9: 724.3] Caitlin ADAIR [facility] CPT-4: 02545 06/09/2014 Plan of Care Planned Activity Notes Codes Status Date Visit Diagnosis Plan: Acute suppurative otitis media with spontaneous rupture of ear drum, left ear Discussion: rocephin shot given in office due to severity of infection. cipro drops prescribed to take as directed. instructed to call dr. rust's office and inform them of rupture and of loss of ear tube and if it's needed to be replaced. finish out the antibiotics that were prescribed by dr. rust but start tomorrow. ICD-9 : 382.01 ICD-10 : H66.012 03/19/2019 Visit Diagnosis Plan: Essential (primary) hypertension Discussion: patient's bp has continued to elevate over recent visits. bystolic samples were given to patient with instructions on 5 mg daily. instructed to rtc 2 weeks for bp check. discussed side effects with patient and to call with any concerns. ICD-9 : 401.9 ICD-10 : I10 03/19/2019 Patient Education: High Blood Pressure Completed 03/19/2019 Patient Education: ciprofloxacin- [employer] Coupon [id number] Completed 03/19/2019 Visit Diagnosis Plan: Acute upper respiratory infection, unspecified Discussion: Strep A- negative. Prednisone 10 mg TID x 5 days. Supportive care- fluids, rest, tylenol or motrin for pain and fever. If symptoms not improved in 7 days RTC. Salt water gargles for throat pain, lozenges, chloraseptic spray. No further questions at this time. ICD-9 : 465.9 ICD-10 : J06.9 10/23/2018 Appointment: Carmen Stout [address] ACUTE ILLNESS 10/23/2018 Visit Diagnosis Plan: Lumbago with sciatica, left side Discussion: 40 mg kenalog/4 mg dexa given inoffice. medrol dose pack prescribed to start tomorrow. heat to area prn. will re-order PT through [facility] per patient request. will also order MRI of low back due to chronic, recurrent issues and no MRI on file. instructed patient to call back on saturday if no improvement in pain and will order additional medications for relief. ICD-9 : 724.3 ICD-10 : M54.42 06/16/2018 Appointment: Danielle Urena [address] ACUTE ILLNESS 06/16/2018 Visit Diagnosis Plan: Gastro-esophageal reflux disease without esophagitis Discussion: Decrease omeprazole to 20mg daily Follow Up: 3 months ICD-9 : 530.81 ICD-10 : K21.9 02/18/2018 Visit Diagnosis Plan: Encounter for general adult medical examination without abnormal findings Discussion: Patient has fasting lab at work in May ICD-9 : V70.0 ICD-10 : Z00.00 02/18/2018 Appointment: Caitlin Adair WPtel: [address] [place], [place] [phone] Annual Well Visit 02/18/2018 Patient Education: Patient Medication Summary Completed 02/18/2018 Visit Plan: Supportive care. Rest, Fluids, Tylenol/Motrin prn fever or bodyaches. Notify if worsening symptoms.New toothebrush in 5 days 08/15/2017 Visit NOS Plan: Plan Notes: Supportive care. Rest, Fluids... 08/15/2017 Visit Diagnosis Plan: Acute pharyngitis, unspecified Discussion: Z-pack ICD-9 : 462 ICD-10 : J02.9 08/15/2017 Appointment: Caitlin Adair WPtel: [address] [place], [place] [phone] ACUTE ILLNESS 08/15/2017 Patient Education: Patient Medication Summary Completed 08/15/2017 Visit Plan: States he has more recent labs that are in the record and will bring them to the office to enter. Refilled Omeprazole for 1 year ERx to Discussed health maint (seat belts, safety, etc.) 02/15/2017 Visit Plan: States he has more recent labs that are in the record and will bring them to the office to enter. Refilled Omeprazole for 1 year ERx to Discussed health maint (seat belts, safety, etc.) 02/15/2017 Appointment: Hetal Guzman WPtel: [address] [place], [place] [phone] Annual Well Visit 02/15/2017 Patient Education: Patient Medication Summary Completed 02/15/2017 Appointment: Caitlin Adair WPtel: [address] [place], [place] [phone] INJECTION 01/02/2016 Patient Education: Patient Medication Summary Completed 01/02/2016 Visit Plan: Update labs to get baseline for today Stressed importance of healthy diet, exercise, and weight loss If BP and/or lipids continue to be an issue, will need to start rx therapy Will need to watch potassium and glucose both to see if chronically abnormal Holter monitor to be scheduled(48 hours) and will likely follow with stress test with referral to sander and buffer to review 10/10/2015 Visit Plan: Update labs to get baseline for today Stressed importance of healthy diet, exercise, and weight loss If BP and/or lipids continue to be an issue, will need to start rx therapy Will need to watch potassium and glucose both to see if chronically abnormal Holter monitor to be scheduled(48 hours) and will likely follow with stress test with referral to sander and buffer to review 10/10/2015 Appointment: Gia Vargas [address] [place] [address] Annual Well Visit 10/10/2015 Patient Education: Patient Medication Summary Completed 10/10/2015 Visit Plan: To [facility] for x-ray of Lumbar Spine/MRI if indicated Consider Physical Therapy Resume Zorvelox and Flexeril Resume low back stretches 10/25/2014 Appointment: Rita Wyatt WPtel: [address] [place] [address] ACUTE ILLNESS 10/25/2014 Patient Education: Patient Medication Summary Completed 10/25/2014 Care Plan: MRI LUMBAR SPINE W/O DYE LOINC : 10923-3 Ordered 10/25/2014 Visit Plan: Complete prednisone as directed Flexeril 10 mg PO Tid for muscle spasm Zorvelox PO TID after steriod pack is completed. Alternate heat and ice to low back Demonstrated low back stretches, instructed to do 2-3 times daily holding stretches for 15 sec. 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 Supportive care. Rest, Fluids, Tylenol/Motrin prn fever or bodyaches. Notify if worsening symptoms.New toothebrush in 5 days . To [facility] for x-ray of Lumbar Spine/MRI if indicated Consider Physical Therapy Resume Zorvelox and Flexeril Resume low back stretches . States he has more recent labs that are in the record and will bring them to the office to enter. Refilled Omeprazole for 1 year ERx to [facility] Discussed health maint (seat belts, safety, etc.) . States he has more recent labs that are in the record and will bring them to the office to enter. Refilled Omeprazole for 1 year ERx to [facility] Discussed health maint (seat belts, safety, etc.) . Complete prednisone as directed Flexeril 10 mg PO Tid for muscle spasm Zorvelox PO TID after steriod pack is completed. Alternate heat and ice to low back Demonstrated low back stretches, instructed to do 2-3 times daily holding stretches for 15 sec. . Update labs to get baseline for today Stressed importance of healthy diet, exercise, and weight loss If BP and/or lipids continue to be an issue, will need to start rx therapy Will need to watch potassium and glucose both to see if chronically abnormal Holter monitor to be scheduled(48 hours) and will likely follow with stress test with referral to sander and buffer to review . Update labs to get baseline for today Stressed importance of healthy diet, exercise, and weight loss If BP and/or lipids continue to be an issue, will need to start rx therapy Will need to watch potassium and glucose both to see if chronically abnormal Holter monitor to be scheduled(48 hours) and will likely follow with stress test with referral to sander and buffer to review
--- OUTSIDE RECORDS SUMMARY | 2019-03-21 00:04 | XMS REPORT | CCD ---
Author Author Jennifer Adair D.O. Organization [facility] Address [address] [place] [address] Phone Care Team Providers Care Institutional Nutrition Consultant Name Role Phone Jennifer Adair D.O., PP Unavailable CCM Unavailable Summary Purpose Interface Exchange Insurance Providers Payer name Policy type / Coverage type Covered alliance party ID Effective Begin Date Effective End Date Blue Cross Blue Shield Blue Cross/Blue Shield [id number] 2018 Unknown Family history Father Diagnosis Age At Onset Hyperthyroidism Unknown Hiatal Hernia Unknown Mother Diagnosis Age At Onset Hypertension Unknown Social History Social History Element Codes Description Effective Dates Marital status Unknown 06/09/2014 Employment Unknown Currently employed 06/09/[address]: 595988 Currently drinks alcohol per week, 3-5 06/09/2014 [...] Instructions ciprofloxacin 0.3 % eye drops RxNorm: 750866 4 Drop(s) left OTIC BID 03/19/2019 03/25/2019 Active cefuroxime axetil 250 mg tablet RxNorm: 008607 1 Tablet(s) PO BID 03/19/2019 03/28/2019 Active Ciprodex 0.3 %-0.1 % ear drops,suspension RxNorm: 008494 4 Drop(s) otic (ear) BID 03/19/2019 03/19/2019 Inactive omeprazole 20 mg capsule,delayed release RxNorm: 550919 1 CAPSULE(S) PO QD DUE FOR FOLLOW UP ON THIS MEDICATION 02/16/2019 04/16/2019 Active omeprazole 20 mg capsule,delayed release RxNorm: 655941 1 Capsule(s) PO QD due for follow up on this medication 11/17/2018 12/16/2018 Inactive prednisone 10 mg tablet RxNorm: 851970 1 Tablet(s) PO TID 10/23/2018 10/27/2018 Inactive Celebrex 200 mg capsule RxNorm: 071833 1 Capsule(s) PO BID 06/19/2018 10/22/2018 Inactive Medrol (Zeus) 4 mg tablets in a dose pack RxNorm: 718026 Tablet(s) PO take as directed 06/16/2018 10/22/2018 Inactive omeprazole 20 mg capsule,delayed release RxNorm: 334239 1 CAPSULE(S) PO QD 05/26/2018 11/16/2018 Inactive omeprazole 20 mg capsule,delayed release RxNorm: 075243 1 Capsule(s) PO QD 02/18/2018 05/18/2018 Inactive omeprazole 40 mg capsule,delayed release RxNorm: 20020920 1 Capsule(s) PO QD Needs routine appointment 02/03/2018 02/17/2018 Inactive Zithromax Z-Zeus 250 mg tablet RxNorm: 979285 Tablet(s) PO as directed 08/15/2017 02/17/2018 Inactive [...] Inactive ketoconazole 2 % topical cream RxNorm: 508067 Application TOP BID 06/19/2016 02/14/2017 Inactive omeprazole 40 mg capsule,delayed release RxNorm: 20020920 CAPSULE(S) 1 CAPSULE(S) PO QD 02/14/2016 07/12/2016 Inactive omeprazole 40 mg capsule,delayed release RxNorm: 20020920 Capsule(s) 1 CAPSULE(S) PO QD 08/18/2015 02/13/2016 Inactive omeprazole 40 mg capsule,delayed release RxNorm: 20020920 1 CAPSULE(S) PO QD 02/14/2015 08/18/2015 Inactive cyclobenzaprine 10 mg tablet RxNorm: 053279 1 Tablet(s) PO TID as needed 10/25/2014 10/09/2015 Inactive Zorvolex 35 mg capsule RxNorm: 7809908 1 Capsule(s) PO TID start after steroid 10/25/2014 10/09/2015 Inactive omeprazole 40 mg capsule,delayed release RxNorm: 556910 1 Capsule(s) PO QD 10/11/2014 02/07/2015 Inactive Zorvolex 35 mg capsule RxNorm: 8426563 1 Capsule(s) PO TID start after steroid 08/27/2014 10/24/2014 Inactive cyclobenzaprine 10 mg tablet RxNorm: 010908 1 Tablet(s) PO TID as needed 08/27/2014 10/24/2014 Inactive prednisone 20 mg tablet RxNorm: 948704 1 Tablet(s) PO BID 08/27/2014 09/02/2014 Inactive Zorvolex 35 mg capsule RxNorm: 3900265 1 Capsule(s) PO TID start after steroid 06/09/2014 08/26/2014 Inactive ketoconazole 2 % shampoo RxNorm: 449048 Application TOP Q2D 06/09/2014 08/26/2014 Inactive baclofen 20 mg tablet RxNorm: 684277 1 Tablet(s) PO QHS as needed for muscle spasm 06/09/2014 08/26/2014 Inactive prednisone 20 mg tablet RxNorm: 278206 1 Tablet(s) PO BID 06/09/2014 06/15/2014 Inactive ketoconazole 2 % topical cream RxNorm: 153732 Application TOP BID 06/09/2014 08/26/2014 Inactive omeprazole 40 mg capsule,delayed release RxNorm: 873670 1 Capsule(s) PO QD 06/09/2014 10/11/2014 Inactive tramadol 50 mg tablet RxNorm: 956593 1-2 Tablet(s) PO TID as needed for pain No Start Date 10/22/2018 Inactive Prilosec 10 mg capsule,delayed release RxNorm: 923280 1 Capsule(s) PO QD No Start Date 10/09/2015 Inactive Flonase 50 mcg/actuation nasal spray,suspension RxNorm: 107829 [place] NASAL as needed No Start Date 08/14/2017 Inactive Celebrex 200 mg capsule RxNorm: 447902 1 Capsule(s) PO BID No Start Date 06/18/2018 Inactive ketoconazole 2 % topical cream RxNorm: 999164 Application TOP BID No Start Date 06/18/2016 [...] benign 03/19/2019 None Full Exam - General Constitutional [...] CPT-4: J0696 03/19/2019 THER/PROPH/DIAG INJ SC/IM CPT-4: 16429 03/19/2019 STREP A ASSAY W/OPTIC CPT- 4: 46710 10/23/2018 THER/PROPH/DIAG INJ SC/IM CPT-4: 46423 06/16/2018 TRIAMCINOLONE ACET INJ NOS CPT-4: J3301 06/16/2018 DEXAMETHASONE SODIUM PHOS CPT-4: J1100 06/16/2018 THER/PROPH/DIAG INJ SC/IM CPT-4: 97150 01/02/2016 TRIAMCINOLONE ACET INJ NOS CPT-4: J3301 01/02/2016 INCISE FLEXOR CARPI RADIALIS CPT-4: 48726 Unknown REMOVAL OF ADENOIDS CPT- 4: 93908 Unknown SHOULDER ARTHROSCOPY/SURGERY CPT-4: 89791 Unknown Vital Signs Date Vital 03/19/2019 Blood [...] 1: 126/82 Code: 8480-6 BMI: 34.2 Code: 62083-6 Heart Rate 1: 76 bpm Height: 6' Respiratory Rate: 20 bpm SpO2: 97% Temperature: 36.6 (C) / 97.9 (F) Weight: 252 lbs 08/15/2017 Blood Pressure 1: 126/86 Code: 8480-6 BMI: 33.0 Code: 98201-8 Heart Rate 1: 80 bpm Height: 6' Respiratory Rate: 20 bpm SpO2: 97% Temperature: 36.9 (C) / 98.4 (F) Weight: 243 lbs 02/15/2017 Blood Pressure 1: 132/84 Code: 8480-6 BMI: 32.0 Code: 26271-8 Heart Rate 1: 86 bpm Height: 6' Respiratory Rate: 20 bpm SpO2: 97% Temperature: 36.4 (C) / 97.6 (F) Weight: 236 lbs 10/10/2015 Blood Pressure 1: 136/82 Code: 8480-6 BMI: 32.5 Code: 72277-0 Heart Rate 1: 80 bpm Height: 6' Respiratory Rate: 24 bpm SpO2: 97% Temperature: 36.4 (C) / 97.6 (F) Weight: 240 lbs 10/25/2014 Blood Pressure 1: 142/86 Code: 8480-6 BMI: 32.6 Code: 27691-4 Heart Rate 1: 80 bpm Height: 5'11" Respiratory Rate: 20 bpm Temperature: 36.4 (C) / 97.6 (F) Weight: 234 lbs 08/27/2014 Blood Pressure 1: 132/88 Code: 8480-6 BMI: 32.2 Code: 25138-5 Heart Rate 1: 66 bpm Height: 5'11" Respiratory Rate: 18 bpm Temperature: 36.6 (C) / 97.9 (F) Weight: 231 lbs 06/09/2014 Blood Pressure 1: 124/82 Code: 8480-6 BMI: 31.7 Code: 47884-4 Heart Rate 1: 98 bpm Height: 5'11" [...] data Encounters Encounter Performer Location Codes Date ([id number]) OFFICE/OUTPATIENT VISIT EST Diagnosis: Acute suppurative otitis media with spontaneous rupture of ear drum, left ear[ICD10: H66.012] Diagnosis: Essential (primary) hypertension[ICD10: I10] Danielle ADAIR [employer] [facility] CPT-4: 85811 03/19/2019 ([id number]) OFFICE/OUTPATIENT VISIT EST Diagnosis: Acute upper respiratory infection, unspecified[ICD10: J06.9] Diagnosis: Acute pharyngitis, unspecified[ICD10: J02.9] Carmen HaroRamon [employer] CPT-4: 32836 10/23/2018 ([id number]) OFFICE/OUTPATIENT VISIT EST Diagnosis: Lumbago with sciatica, left side[ICD10: M54.42] Danielle Sorto [employer] CPT-4: 24801 06/16/2018 ([id number]) PREV VISIT EST AGE 18-39 Diagnosis: Encounter for general adult medical examination without abnormal findings[ICD10: Z00.00] Diagnosis: Gastro-esophageal reflux disease without esophagitis[ICD10: K21.9] Diagnosis: Mixed hyperlipidemia[ICD10: E78.2] Jennifer SMITHLINE Macario [employer] [facility] CPT-4: 77152 02/18/2018 ([id number]) OFFICE/OUTPATIENT VISIT EST Diagnosis: Acute pharyngitis, unspecified[ICD10: J02.9] Jennifer HaroRamon BUFFY [employer] [facility] CPT-4: 58332 08/15/2017 ([id number]) PREV VISIT EST AGE 18-39 Diagnosis: Encounter for general adult medical examination without abnormal findings[ICD10: Z00.00] Diagnosis: Gastro-esophageal reflux disease without esophagitis[ICD10: K21.9] Hetal Guzman JENNIFER TahirRamon [employer] [facility] CPT-4: 10025 02/15/2017 ([id number]) OFFICE/OUTPATIENT VISIT EST Diagnosis: Allergic rhinitis, unspecified[ICD10: J30.9] Jennifer ADAIR [employer] [facility] CPT-4: 12680 01/02/2016 ([id number]) PREV VISIT EST AGE 18-39 Diagnosis: Encounter for general adult medical examination with abnormal findings[ICD10: Z00.01] Diagnosis: Mixed hyperlipidemia[ICD10: E78.2] Diagnosis: Hyperkalemia[ICD10: E87.5] Diagnosis: Hypoglycemia, unspecified[ICD10: E16.2] Diagnosis: Chest pain, unspecified[ICD10: R07.9] Diagnosis: Palpitations[ICD10: R00.2] Gia ADAIR [employer] [facility] CPT-4: 01061 10/10/2015 ([id number]) OFFICE/OUTPATIENT VISIT EST Diagnosis: SCIATICA[ICD9: 724.3] Rita ADAIR [employer] [facility] CPT-4: 03759 10/25/2014 OFFICE/OUTPATIENT VISIT EST Diagnosis: SCIATICA[ICD9: 724.3] Rita ADAIR [employer] [facility] CPT-4: 81935 08/27/2014 ([id number]) OFFICE/OUTPATIENT VISIT NEW Diagnosis: SCIATICA[ICD9: 724.3] Diagnosis: GERD[ICD9: 530.81] Diagnosis: Tinea versicolor[ICD9: 111.0] Jennifer ADAIR [employer] [facility] CPT-4: 36215 06/09/2014 ([id number]) OFFICE/OUTPATIENT VISIT NEW Diagnosis: Tinea versicolor[ICD9: 111.0] Diagnosis: GERD[ICD9: 530.81] Diagnosis: SCIATICA[ICD9: 724.3] Jennifer ADAIR [employer] [facility] CPT-4: 21127 06/09/2014 Plan of Care Planned Activity Notes [...] Completed 03/19/2019 Patient Education: ciprofloxacin- [employer] Coupon [id number] Completed 03/19/2019 Visit Diagnosis Plan: Acute upper [...] : J06.9 10/23/2018 Appointment: Carmen Stout [address] ACUTE ILLNESS 10/23/2018 Visit Diagnosis Plan: [...] : M54.42 06/16/2018 Appointment: Danielle Urena [address] ACUTE ILLNESS 06/16/2018 Visit Diagnosis Plan: Gastro-esophageal reflux disease without esophagitis Discussion: Decrease omeprazole to 20mg daily Follow Up: 3 months ICD-9 : 530.81 ICD-10 : K21.9 02/18/2018 Visit Diagnosis Plan: Encounter for general adult medical examination without abnormal findings Discussion: Patient has fasting lab at work in May ICD-9 : V70.0 ICD-10 : Z00.00 02/18/2018 Appointment: Jennifer Adair WPtel: [address] [place] [address] Annual Well Visit 02/18/2018 Patient Education: Patient Medication Summary Completed 02/18/2018 Visit Plan: Supportive care. Rest, Fluids, Tylenol/Motrin prn fever or bodyaches. Notify if worsening symptoms.New toothebrush in 5 days 08/15/2017 Visit NOS Plan: Plan Notes: Supportive care. Rest, Fluids... 08/15/2017 Visit Diagnosis Plan: Acute pharyngitis, unspecified Discussion: Z-pack ICD-9 : 462 ICD-10 : J02.9 08/15/2017 Appointment: Jennifer Adair WPtel: [address] [place] [address] ACUTE ILLNESS 08/15/2017 Patient Education: Patient Medication [...] etc.) 02/15/2017 Appointment: Hetal Guzman WPtel: [address] [place] [address] Annual Well Visit 02/15/2017 Patient Education: Patient Medication Summary Completed 02/15/2017 Appointment: Jennifer Adair WPtel: [address] [place] [address] INJECTION 01/02/2016 Patient Education: Patient Medication Summary [...] follow with stress test with referral to floor service worker [place] to review 10/10/2015 Visit Plan: Update labs [...] follow with stress test with referral to floor service worker [place] to review 10/10/2015 Appointment: Gia Vargas [address] Annual Well Visit 10/10/2015 Patient Education: Patient Medication Summary Completed 10/10/2015 Visit Plan: To [facility] for x-ray of Lumbar Spine/MRI if indicated Consider Physical Therapy Resume Zorvelox and Flexeril Resume low back stretches 10/25/2014 Appointment: Rita Wyatt WPtel: [address] [place] [address] ACUTE ILLNESS 10/25/2014 Patient Education: Patient Medication Summary Completed 10/25/2014 Care Plan: MRI LUMBAR SPINE W/O DYE LOINC : 00081-9 Ordered 10/25/2014 Visit Plan: Complete prednisone as directed Flexeril 10 mg PO Tid for muscle spasm Zorvelox PO TID after steriod pack is completed. Alternate heat and ice to low back Demonstrated low back stretches, instructed to do 2-3 times daily holding stretches for 15 sec. 08/27/2014 Appointment: Rita Wyatt WPtel: [facility] ACUTE ILLNESS 08/27/2014 Patient Education: Patient [...] will continue to moniter/observe moles 06/09/2014 Appointment: Jennifer Adair WPtel: [address] [id number] NEW PATIENT 06/09/2014 Patient Education: Patient Medication Summary Completed 06/09/2014 Patient Education: Patient Medication Summary Completed 06/09/2014 Referral: Rocael Winters WPtel: [facility] [address] [facility] [id number] [place] Referral Initiated Referral: Rocael Winters WPtel: [facility] [address] [place] [address] [id number] [place] Referral Initiated Referral: Rocael Winters WPtel: [facility] [place] [address] [place] [address] [id number] [place] Referral Initiated Instructions Comment . Baclofen [...] follow with stress test with referral to floor service worker [place] to review . Update labs to get baseline for today Stressed importance of healthy diet, exercise, and weight loss If BP and/or lipids continue to be an issue, will need to start rx therapy Will need to watch potassium and glucose both to see if chronically abnormal Holter monitor to be scheduled(48 hours) and will likely follow with stress test with referral to floor service worker spring to review
--- OUTSIDE RECORDS SUMMARY | 2019-03-21 00:05 | XMS REPORT | CCD ---
Author Author Jennifer Adair D.O. Organization JENNIFER ADAIR DO [facility] Address [address] [place] [address] Phone Care Team Providers Care Applique Sewer Name Role Phone Jennifer Adair D.O., PP Unavailable CCM Unavailable Summary Purpose Interface Exchange Insurance Providers Payer name Policy type / Coverage type Covered constitution party ID Effective Begin Date Effective End Date Blue Cross Blue Shield Blue Cross/Blue Shield [id number] 2018 Unknown Family history Father Diagnosis Age At Onset Hyperthyroidism Unknown Hiatal Hernia Unknown Mother Diagnosis Age At Onset Hypertension Unknown Social History Social History Element Codes Description Effective Dates Marital status Unknown 06/09/2014 Employment Unknown Currently employed 06/09/[address]: 560164 Currently drinks alcohol per week, 3-5 06/09/2014 [...] Instructions ciprofloxacin 0.3 % eye drops RxNorm: 453739 4 Drop(s) left OTIC BID 03/19/2019 03/25/2019 Active cefuroxime axetil 250 mg tablet RxNorm: 164252 1 Tablet(s) PO BID 03/19/2019 03/28/2019 Active Ciprodex 0.3 %-0.1 % ear drops,suspension RxNorm: 541262 4 Drop(s) otic (ear) BID 03/19/2019 03/19/2019 Inactive omeprazole 20 mg capsule,delayed release RxNorm: 992273 1 CAPSULE(S) PO QD DUE FOR FOLLOW UP ON THIS MEDICATION 02/16/2019 04/16/2019 Active omeprazole 20 mg capsule,delayed release RxNorm: 315852 1 Capsule(s) PO QD due for follow up on this medication 11/17/2018 12/16/2018 Inactive prednisone 10 mg tablet RxNorm: 845224 1 Tablet(s) PO TID 10/23/2018 10/27/2018 Inactive Celebrex 200 mg capsule RxNorm: 981673 1 Capsule(s) PO BID 06/19/2018 10/22/2018 Inactive Medrol (Zeus) 4 mg tablets in a dose pack RxNorm: 644912 Tablet(s) PO take as directed 06/16/2018 10/22/2018 Inactive omeprazole 20 mg capsule,delayed release RxNorm: 757729 1 CAPSULE(S) PO QD 05/26/2018 11/16/2018 Inactive omeprazole 20 mg capsule,delayed release RxNorm: 808154 1 Capsule(s) PO QD 02/18/2018 05/18/2018 Inactive omeprazole 40 mg capsule,delayed release RxNorm: 20020920 1 Capsule(s) PO QD Needs routine appointment 02/03/2018 02/17/2018 Inactive Zithromax Z-Zeus 250 mg tablet RxNorm: 402313 Tablet(s) PO as directed 08/15/2017 02/17/2018 Inactive [...] Inactive ketoconazole 2 % topical cream RxNorm: 463288 Application TOP BID 06/19/2016 02/14/2017 Inactive omeprazole 40 mg capsule,delayed release RxNorm: 20020920 CAPSULE(S) 1 CAPSULE(S) PO QD 02/14/2016 07/12/2016 Inactive omeprazole 40 mg capsule,delayed release RxNorm: 20020920 Capsule(s) 1 CAPSULE(S) PO QD 08/18/2015 02/13/2016 Inactive omeprazole 40 mg capsule,delayed release RxNorm: 20020920 1 CAPSULE(S) PO QD 02/14/2015 08/18/2015 Inactive cyclobenzaprine 10 mg tablet RxNorm: 437601 1 Tablet(s) PO TID as needed 10/25/2014 10/09/2015 Inactive Zorvolex 35 mg capsule RxNorm: 9882393 1 Capsule(s) PO TID start after steroid 10/25/2014 10/09/2015 Inactive omeprazole 40 mg capsule,delayed release RxNorm: 132404 1 Capsule(s) PO QD 10/11/2014 02/07/2015 Inactive Zorvolex 35 mg capsule RxNorm: 1524273 1 Capsule(s) PO TID start after steroid 08/27/2014 10/24/2014 Inactive cyclobenzaprine 10 mg tablet RxNorm: 292297 1 Tablet(s) PO TID as needed 08/27/2014 10/24/2014 Inactive prednisone 20 mg tablet RxNorm: 003228 1 Tablet(s) PO BID 08/27/2014 09/02/2014 Inactive Zorvolex 35 mg capsule RxNorm: 1312863 1 Capsule(s) PO TID start after steroid 06/09/2014 08/26/2014 Inactive ketoconazole 2 % shampoo RxNorm: 900375 Application TOP Q2D 06/09/2014 08/26/2014 Inactive baclofen 20 mg tablet RxNorm: 517814 1 Tablet(s) PO QHS as needed for muscle spasm 06/09/2014 08/26/2014 Inactive prednisone 20 mg tablet RxNorm: 972543 1 Tablet(s) PO BID 06/09/2014 06/15/2014 Inactive ketoconazole 2 % topical cream RxNorm: 876805 Application TOP BID 06/09/2014 08/26/2014 Inactive omeprazole 40 mg capsule,delayed release RxNorm: 370925 1 Capsule(s) PO QD 06/09/2014 10/11/2014 Inactive tramadol 50 mg tablet RxNorm: 801122 1-2 Tablet(s) PO TID as needed for pain No Start Date 10/22/2018 Inactive Prilosec 10 mg capsule,delayed release RxNorm: 275725 1 Capsule(s) PO QD No Start Date 10/09/2015 Inactive Flonase 50 mcg/actuation nasal spray,suspension RxNorm: 298223 [place] NASAL as needed No Start Date 08/14/2017 Inactive Celebrex 200 mg capsule RxNorm: 935719 1 Capsule(s) PO BID No Start Date 06/18/2018 Inactive ketoconazole 2 % topical cream RxNorm: 512606 Application TOP BID No Start Date 06/18/2016 [...] CPT-4: J0696 03/19/2019 THER/PROPH/DIAG INJ SC/IM CPT-4: 81764 03/19/2019 STREP A ASSAY W/OPTIC CPT- 4: 64201 10/23/2018 THER/PROPH/DIAG INJ SC/IM CPT-4: 51212 06/16/2018 TRIAMCINOLONE ACET INJ NOS CPT-4: J3301 06/16/2018 DEXAMETHASONE SODIUM PHOS CPT-4: J1100 06/16/2018 THER/PROPH/DIAG INJ SC/IM CPT-4: 34806 01/02/2016 TRIAMCINOLONE ACET INJ NOS CPT-4: J3301 01/02/2016 INCISE FLEXOR CARPI RADIALIS CPT-4: 83982 Unknown REMOVAL OF ADENOIDS CPT- 4: 88676 Unknown SHOULDER ARTHROSCOPY/SURGERY CPT-4: 97620 Unknown Vital Signs Date Vital 03/19/2019 Blood [...] 1: 126/82 Code: 8480-6 BMI: 34.2 Code: 67379-2 Heart Rate 1: 76 bpm Height: 6' Respiratory Rate: 20 bpm SpO2: 97% Temperature: 36.6 (C) / 97.9 (F) Weight: 252 lbs 08/15/2017 Blood Pressure 1: 126/86 Code: 8480-6 BMI: 33.0 Code: 03938-2 Heart Rate 1: 80 bpm Height: 6' Respiratory Rate: 20 bpm SpO2: 97% Temperature: 36.9 (C) / 98.4 (F) Weight: 243 lbs 02/15/2017 Blood Pressure 1: 132/84 Code: 8480-6 BMI: 32.0 Code: 54151-9 Heart Rate 1: 86 bpm Height: 6' Respiratory Rate: 20 bpm SpO2: 97% Temperature: 36.4 (C) / 97.6 (F) Weight: 236 lbs 10/10/2015 Blood Pressure 1: 136/82 Code: 8480-6 BMI: 32.5 Code: 58469-7 Heart Rate 1: 80 bpm Height: 6' Respiratory Rate: 24 bpm SpO2: 97% Temperature: 36.4 (C) / 97.6 (F) Weight: 240 lbs 10/25/2014 Blood Pressure 1: 142/86 Code: 8480-6 BMI: 32.6 Code: 60212-2 Heart Rate 1: 80 bpm Height: 5'11" Respiratory Rate: 20 bpm Temperature: 36.4 (C) / 97.6 (F) Weight: 234 lbs 08/27/2014 Blood Pressure 1: 132/88 Code: 8480-6 BMI: 32.2 Code: 69996-4 Heart Rate 1: 66 bpm Height: 5'11" Respiratory Rate: 18 bpm Temperature: 36.6 (C) / 97.9 (F) Weight: 231 lbs 06/09/2014 Blood Pressure 1: 124/82 Code: 8480-6 BMI: 31.7 Code: 79595-7 Heart Rate 1: 98 bpm Height: 5'11" [...] data Encounters Encounter Performer Location Codes Date ([id number]) OFFICE/OUTPATIENT VISIT EST Diagnosis: Acute suppurative otitis media with spontaneous rupture of ear drum, left ear[ICD10: H66.012] Diagnosis: Essential (primary) hypertension[ICD10: I10] Danielle ADAIR [facility] CPT-4: 87635 03/19/2019 ([id number]) OFFICE/OUTPATIENT VISIT EST Diagnosis: Acute upper respiratory infection, unspecified[ICD10: J06.9] Diagnosis: Acute pharyngitis, unspecified[ICD10: J02.9] Carmen HaroRamon [facility] [employer] CPT-4: 47389 10/23/2018 ([id number]) OFFICE/OUTPATIENT VISIT EST Diagnosis: Lumbago with sciatica, left side[ICD10: M54.42] Danielle Sorto [employer] CPT-4: 61460 06/16/2018 ([id number]) PREV VISIT EST AGE 18-39 Diagnosis: Encounter for general adult medical examination without abnormal findings[ICD10: Z00.00] Diagnosis: Gastro-esophageal reflux disease without esophagitis[ICD10: K21.9] Diagnosis: Mixed hyperlipidemia[ICD10: E78.2] Jennifer SMITHLINE Macario [employer] CPT-4: 18629 02/18/2018 ([id number]) OFFICE/OUTPATIENT VISIT EST Diagnosis: Acute pharyngitis, unspecified[ICD10: J02.9] Jennifer HaroRamon BUFFY [facility] CPT-4: 17338 08/15/2017 ([id number]) PREV VISIT EST AGE 18-39 Diagnosis: Encounter for general adult medical examination without abnormal findings[ICD10: Z00.00] Diagnosis: Gastro-esophageal reflux disease without esophagitis[ICD10: K21.9] Hetal Guzman JENNIFER TahirRamon [employer] [facility] CPT-4: 20145 02/15/2017 ([id number]) OFFICE/OUTPATIENT VISIT EST Diagnosis: Allergic rhinitis, unspecified[ICD10: J30.9] Jennifer ADAIR [facility] CPT-4: 03692 01/02/2016 ([id number]) PREV VISIT EST AGE 18-39 Diagnosis: Encounter for general adult medical examination with abnormal findings[ICD10: Z00.01] Diagnosis: Mixed hyperlipidemia[ICD10: E78.2] Diagnosis: Hyperkalemia[ICD10: E87.5] Diagnosis: Hypoglycemia, unspecified[ICD10: E16.2] Diagnosis: Chest pain, unspecified[ICD10: R07.9] Diagnosis: Palpitations[ICD10: R00.2] Gia ADAIR [facility] CPT-4: 41604 10/10/2015 ([id number]) OFFICE/OUTPATIENT VISIT EST Diagnosis: SCIATICA[ICD9: 724.3] Rita ADAIR [facility] CPT-4: 71006 10/25/2014 OFFICE/OUTPATIENT VISIT EST Diagnosis: SCIATICA[ICD9: 724.3] Rita ADAIR [facility] CPT-4: 34499 08/27/2014 ([id number]) OFFICE/OUTPATIENT VISIT NEW Diagnosis: SCIATICA[ICD9: 724.3] Diagnosis: GERD[ICD9: 530.81] Diagnosis: Tinea versicolor[ICD9: 111.0] Jennifer ADAIR [facility] CPT-4: 87465 06/09/2014 ([id number]) OFFICE/OUTPATIENT VISIT NEW Diagnosis: Tinea versicolor[ICD9: 111.0] Diagnosis: GERD[ICD9: 530.81] Diagnosis: SCIATICA[ICD9: 724.3] Jennifer ADAIR [facility] CPT-4: 09451 06/09/2014 Plan of Care Planned Activity Notes [...] Completed 03/19/2019 Patient Education: ciprofloxacin- [employer] Coupon [id number] Completed 03/19/2019 Visit Diagnosis Plan: Acute upper [...] : J06.9 10/23/2018 Appointment: Carmen Stout [address] ACUTE ILLNESS 10/23/2018 Visit Diagnosis Plan: [...] : M54.42 06/16/2018 Appointment: Danielle Urena [address] ACUTE ILLNESS 06/16/2018 Visit Diagnosis Plan: Gastro-esophageal reflux disease without esophagitis Discussion: Decrease omeprazole to 20mg daily Follow Up: 3 months ICD-9 : 530.81 ICD-10 : K21.9 02/18/2018 Visit Diagnosis Plan: Encounter for general adult medical examination without abnormal findings Discussion: Patient has fasting lab at work in May ICD-9 : V70.0 ICD-10 : Z00.00 02/18/2018 Appointment: Jennifer Adair WPtel: [address] [place] [address] Annual Well Visit 02/18/2018 Patient Education: Patient Medication Summary Completed 02/18/2018 Visit Plan: Supportive care. Rest, Fluids, Tylenol/Motrin prn fever or bodyaches. Notify if worsening symptoms.New toothebrush in 5 days 08/15/2017 Visit NOS Plan: Plan Notes: Supportive care. Rest, Fluids... 08/15/2017 Visit Diagnosis Plan: Acute pharyngitis, unspecified Discussion: Z-pack ICD-9 : 462 ICD-10 : J02.9 08/15/2017 Appointment: Jennifer Adair WPtel: [address] [place] [address] ACUTE ILLNESS 08/15/2017 Patient Education: Patient Medication [...] safety, etc.) 02/15/2017 Appointment: Hetal Guzman WPtel: [address] [place] [address] Annual Well Visit 02/15/2017 Patient Education: Patient Medication Summary Completed 02/15/2017 Appointment: Jennifer Adair WPtel: [address] [place] [address] INJECTION 01/02/2016 Patient Education: Patient Medication Summary [...] follow with stress test with referral to hand cloth cutter to review 10/10/2015 Visit Plan: Update labs [...] follow with stress test with referral to hand cloth cutter to review 10/10/2015 Appointment: Gia Vargas [address] Annual Well Visit 10/10/2015 Patient Education: Patient Medication Summary Completed 10/10/2015 Visit Plan: To [facility] for x-ray of Lumbar Spine/MRI if indicated Consider Physical Therapy Resume Zorvelox and Flexeril Resume low back stretches 10/25/2014 Appointment: Rita Wyatt WPtel: [address] [place] [address] ACUTE ILLNESS 10/25/2014 Patient Education: Patient Medication Summary Completed 10/25/2014 Care Plan: MRI LUMBAR SPINE W/O DYE LOINC : 44019-8 Ordered 10/25/2014 Visit Plan: Complete prednisone as directed Flexeril 10 mg PO Tid for muscle spasm Zorvelox PO TID after steriod pack is completed. Alternate heat and ice to low back Demonstrated low back stretches, instructed to do 2-3 times daily holding stretches for 15 sec. 08/27/2014 Appointment: Rita Wyatt WPtel: [facility] ACUTE ILLNESS 08/27/2014 Patient Education: Patient [...] Summary Completed 06/09/2014 Referral: Rocael Winters WPtel: [facility] [address] [facility] [id number] [place] Referral Initiated Referral: Rocael Winters WPtel: [facility] [address] [place] [address] [id number] [place] Referral Initiated Referral: Rocael Winters WPtel: [facility] [address] [place] [address] [id number] [place] Referral Initiated Instructions Comment . Baclofen [...] follow with stress test with referral to hand cloth cutter to review . Update labs to get baseline for today Stressed importance of healthy diet, exercise, and weight loss If BP and/or lipids continue to be an issue, will need to start rx therapy Will need to watch potassium and glucose both to see if chronically abnormal Holter monitor to be scheduled(48 hours) and will likely follow with stress test with referral to hand cloth cutter to review
--- OUTSIDE RECORDS SUMMARY | 2019-03-21 00:06 | XMS REPORT | Continuity of Care Document ---
Author Organization Unknown Address Unknown Phone Unavailable Allergies Active Description [...] Ot E888.8 11/12/2014 Ot 724.2 01/26/2015 CAITLIN ADAIR DO Ot 327.23 OBSTRUCTIVE SLEEP APNEA (ADULT) (PEDIATR 07/18/2015 Ot 724.2 10/11/2015 Ot 724.2 11/23/2015 BRENT BOLAND GRADUATE STUDENT INSTRUCTOR Ot E07.9 11/23/2015 BRENT BOLAND GRADUATE STUDENT INSTRUCTOR Ot E16.2 11/23/2015 BRENT BOLAND GRADUATE STUDENT INSTRUCTOR Ot E78.5 11/23/2015 BRENT BOLAND GRADUATE STUDENT INSTRUCTOR Ot E87.5 11/23/2015 BRENT BOLAND GRADUATE STUDENT INSTRUCTOR Ot R00.2 01/09/2016 BRENT BOLAND GRADUATE STUDENT INSTRUCTOR Ot E07.9 DISORDER OF THYROID, UNSPECIFIED 01/09/2016 BRENT BOLAND GRADUATE STUDENT INSTRUCTOR Ot E16.2 HYPOGLYCEMIA, UNSPECIFIED 01/09/2016 BRENT BOLAND GRADUATE STUDENT INSTRUCTOR Ot E78.5 HYPERLIPIDEMIA, UNSPECIFIED 01/09/2016 BRENT BOLAND GRADUATE STUDENT INSTRUCTOR Ot E87.5 HYPERKALEMIA 01/09/2016 BRENT BOLAND GRADUATE STUDENT INSTRUCTOR Ot R00.2 PALPITATIONS 01/15/2016 BRENT BOLAND GRADUATE STUDENT INSTRUCTOR Ot E07.9 DISORDER OF THYROID, UNSPECIFIED 01/15/2016 BRENT BOLAND GRADUATE STUDENT INSTRUCTOR Ot E16.2 HYPOGLYCEMIA, UNSPECIFIED 01/15/2016 BRENT BOLAND GRADUATE STUDENT INSTRUCTOR Ot E78.5 HYPERLIPIDEMIA, UNSPECIFIED 01/15/2016 BRENT BOLAND GRADUATE STUDENT INSTRUCTOR Ot E87.5 HYPERKALEMIA 01/15/2016 BRENT BOLAND GRADUATE STUDENT INSTRUCTOR Ot R00.2 PALPITATIONS 04/09/2016 BRENT BOLAND GRADUATE STUDENT INSTRUCTOR Ot E07.9 DISORDER OF THYROID, UNSPECIFIED 04/09/2016 BRENT BOLAND GRADUATE STUDENT INSTRUCTOR Ot E16.2 HYPOGLYCEMIA, UNSPECIFIED 04/09/2016 BRENT BOLAND GRADUATE STUDENT INSTRUCTOR Ot E78.5 HYPERLIPIDEMIA, UNSPECIFIED 04/09/2016 BRENT BOLAND GRADUATE STUDENT INSTRUCTOR Ot E87.5 HYPERKALEMIA 04/09/2016 BRENT BOLAND GRADUATE STUDENT INSTRUCTOR Ot R00.2 PALPITATIONS 04/09/2016 ESTHELA PELLETIER, ELPIDIO P Ot H66.93 OTITIS MEDIA, UNSPECIFIED, BILATERAL 04/09/2016 ESTHELA PELLETIER, ELPIDIO P Ot Z01.818 ENCOUNTER FOR OTHER PREPROCEDURAL EXAMIN 04/11/2016 ELPIDIO PROCTOR MD P Ot H66.93 OTITIS MEDIA, UNSPECIFIED, BILATERAL 04/11/2016 ESTHELA PELLETIER, ELPIDIO P Ot Z01.818 ENCOUNTER FOR OTHER PREPROCEDURAL EXAMIN 04/12/2016 ESTHELA PELLETIER, ELPIDIO P Ot H66.93 OTITIS MEDIA, UNSPECIFIED, BILATERAL 04/12/2016 ESTHELA PELLETIER, ELPIDIO P Ot Z11.2 ENCOUNTER FOR SCREENING FOR OTHER BACTER 04/13/2016 ESTHELA PELLETIER, ELPIDIO P Ot H66.93 OTITIS MEDIA, UNSPECIFIED, BILATERAL 04/13/2016 ESTHELA PELLETIER, ELPIDIO P Ot Z11.2 ENCOUNTER FOR SCREENING FOR OTHER BACTER 06/25/2017 Ot 724.2 LUMBAGO 06/25/2017 BRENT BOLAND GRADUATE STUDENT INSTRUCTOR Ot E07.9 DISORDER OF THYROID, UNSPECIFIED 06/25/2017 BRENT BOLAND GRADUATE STUDENT INSTRUCTOR Ot E16.2 HYPOGLYCEMIA, UNSPECIFIED 06/25/2017 BRENT BOLAND GRADUATE STUDENT INSTRUCTOR Ot E78.5 HYPERLIPIDEMIA, UNSPECIFIED 06/25/2017 BRENT BOLAND GRADUATE STUDENT INSTRUCTOR Ot E87.5 HYPERKALEMIA 06/25/2017 BRENT BOLAND GRADUATE STUDENT INSTRUCTOR Ot R00.2 PALPITATIONS 06/16/2018 Ot 724.2 LUMBAGO 06/16/2018 BRENT BOLAND GRADUATE STUDENT INSTRUCTOR Ot E07.9 DISORDER OF THYROID, UNSPECIFIED 06/16/2018 BRENT BOLAND GRADUATE STUDENT INSTRUCTOR Ot E16.2 HYPOGLYCEMIA, UNSPECIFIED 06/16/2018 BRENT BOLAND GRADUATE STUDENT INSTRUCTOR Ot E78.5 HYPERLIPIDEMIA, UNSPECIFIED 06/16/2018 BRENT BOLAND Kendra GRADUATE STUDENT INSTRUCTOR Ot E87.5 HYPERKALEMIA 06/16/2018 BRENT BOLAND GRADUATE STUDENT INSTRUCTOR Ot R00.2 PALPITATIONS 06/19/2018 KATHYEVE SMITH R GRADUATE STUDENT INSTRUCTOR Ot M47.26 OTHER SPONDYLOSIS WITH RADICULOPATHY, LOBO 06/19/2018 KATHY, EVE R GRADUATE STUDENT INSTRUCTOR Ot M48.061 SPINAL STENOSIS, LUMBAR REGION WITHOUT N 06/19/2018 KATHY, EVE R GRADUATE STUDENT INSTRUCTOR Ot M51.16 INTERVERTEBRAL DISC DISORDERS W RADICULO 06/19/2018 EVE CHAVEZ R GRADUATE STUDENT INSTRUCTOR Ot M89.9 DISORDER OF BONE, UNSPECIFIED 07/03/2018 DINO GARCIA Ot G47.30 SLEEP APNEA, UNSPECIFIED 07/03/2018 DINO GARCIA Ot K21.9 GASTRO- ESOPHAGEAL REFLUX DISEASE WITHOUT 07/03/2018 DINO GARCIA Ot S61.215A LACERATION W/O FB OF L RNG FNGR W/O DOMINGUEZ 07/03/2018 DINO GARCIA Ot W27.8XXA CONTACT WITH OTHER NONPOWERED HAND TOOL, 07/03/2018 ISAI GARCIAIS Ot Z23 ENCOUNTER FOR IMMUNIZATION 07/03/2018 DINO GARCIA Ot Z98.890 OTHER SPECIFIED POSTPROCEDURAL STATES 07/07/2018 DINO GARCIA Ot G47.30 SLEEP APNEA, UNSPECIFIED 07/07/2018 DINO GARCIA Ot K21.9 GASTRO- ESOPHAGEAL REFLUX DISEASE WITHOUT 07/07/2018 ISAI GARCIAIS Ot S61.215A LACERATION W/O FB OF L RNG FNGR W/O DOMINGUEZ 07/07/2018 DINO GARCIA Ot W27.8XXA CONTACT WITH OTHER NONPOWERED HAND TOOL, 07/07/2018 ISAI GARCIAIS Ot Z23 ENCOUNTER FOR IMMUNIZATION 07/07/2018 DINO GARCIA Ot Z98.890 OTHER SPECIFIED POSTPROCEDURAL STATES 07/11/2018 Ot 724.2 LUMBAGO 07/11/2018 BRENT BOLAND Kendra GRADUATE STUDENT INSTRUCTOR Ot E07.9 DISORDER OF THYROID, UNSPECIFIED 07/11/2018 BRENT BOLAND Kenrda GRADUATE STUDENT INSTRUCTOR Ot E16.2 HYPOGLYCEMIA, UNSPECIFIED 07/11/2018 BRETN BOLAND Kendra GRADUATE STUDENT INSTRUCTOR Ot E78.5 HYPERLIPIDEMIA, UNSPECIFIED 07/11/2018 BRENT BOLAND Kendra GRADUATE STUDENT INSTRUCTOR Ot E87.5 HYPERKALEMIA 07/11/2018 BRENT BOLAND Kendra GRADUATE STUDENT INSTRUCTOR Ot R00.2 PALPITATIONS 07/11/2018 KATHY, EVE R GRADUATE STUDENT INSTRUCTOR Ot M47.26 OTHER SPONDYLOSIS WITH RADICULOPATHY, LOBO 07/11/2018 KATHY, EVE R GRADUATE STUDENT INSTRUCTOR Ot M48.061 SPINAL STENOSIS, LUMBAR REGION WITHOUT N 07/11/2018 KATHY, EVE R GRADUATE STUDENT INSTRUCTOR Ot M51.16 INTERVERTEBRAL DISC DISORDERS W RADICULO 07/11/2018 KATHY, EVE R GRADUATE STUDENT INSTRUCTOR Ot M89.9 DISORDER OF BONE, UNSPECIFIED 07/14/2018 DINO GARCIA Ot G47.30 SLEEP APNEA, UNSPECIFIED 07/14/2018 DINO GARCIA Ot K21.9 GASTRO- ESOPHAGEAL REFLUX DISEASE WITHOUT 07/14/2018 DINO GARCIA Ot S61.215A LACERATION W/O FB OF L RNG FNGR W/O DOMINGUEZ 07/14/2018 DINO GARCIA Ot W27.8XXA CONTACT WITH OTHER NONPOWERED HAND TOOL, 07/14/2018 DINO GARCIA Ot Z23 ENCOUNTER FOR IMMUNIZATION 07/14/2018 DINO GARCIA Ot Z98.890 OTHER SPECIFIED POSTPROCEDURAL STATES 08/04/2018 Ot 724.2 LUMBAGO 08/04/2018 BRENT BOLAND Kendra GRADUATE STUDENT INSTRUCTOR Ot E07.9 DISORDER OF THYROID, UNSPECIFIED 08/04/2018 BRENT BOLAND Kendra GRADUATE STUDENT INSTRUCTOR Ot E16.2 HYPOGLYCEMIA, UNSPECIFIED 08/04/2018 BRENT BOLAND Kendra GRADUATE STUDENT INSTRUCTOR Ot E78.5 HYPERLIPIDEMIA, UNSPECIFIED 08/04/2018 BRENT BOLAND Kendra GRADUATE STUDENT INSTRUCTOR Ot E87.5 HYPERKALEMIA 08/04/2018 BRENT BOLAND Kendra GRADUATE STUDENT INSTRUCTOR Ot R00.2 PALPITATIONS 08/04/2018 KATHY, EVE R GRADUATE STUDENT INSTRUCTOR Ot M47.26 OTHER SPONDYLOSIS WITH RADICULOPATHY, LOBO 08/04/2018 EVE CHAVEZ JAGUAR Ot M48.061 SPINAL STENOSIS, LUMBAR REGION WITHOUT N 08/04/2018 EVE CHAVEZ GRADUATE STUDENT INSTRUCTOR Ot M51.16 INTERVERTEBRAL DISC DISORDERS W RADICULO 08/04/2018 EVE CHAVEZ GRADUATE STUDENT INSTRUCTOR Ot M89.9 DISORDER OF BONE, UNSPECIFIED Procedures There is no data. Results Test Result Range Methicillin resistant Staphylococcus aureus (MRSA) screening culture - 04/12/16 06:10 Methicillin resistant Staphylococcus aureus (MRSA) screening culture NEG NRG Encounters ACCT No. Visit Date/Time Discharge Status Pt. Type Provider Facility Loc./Unit Complaint 07/02/18 03/20/2019 00:00:38 ACT Outpatient Caitlin Adair [id number] 07/03/2018 19:35:00 07/03/2018 21:03:00 DIS Emergency DINO GARCIA [facility] ER CUT FINGER [id number] 06/17/2018 10:39:00 06/17/2018 23:59:59 CLS Outpatient EVE CHAVEZ JAGUAR [facility] RAD LOW BACK PAIN W/ RADICULOPATHY LT [id number] 04/12/2016 05:51:00 04/12/2016 08:40:00 DIS Outpatient ELPIDIO PROCTOR MD [facility] SDC OTITIS MEDIA [id number] 04/09/2016 05:42:00 04/09/2016 16:22:00 DIS Outpatient ELPIDIO PROCTOR MD [facility] PREOP OTITIS MEDIA [id number] 01/10/2016 08:00:00 01/10/2016 23:59:59 CLS Preadmit BRENT BOLAND APRN [facility] CARD HTN,CP,PALPITATIONS [id number] 10/11/2015 07:53:00 01/09/2016 00:01:00 DIS Outpatient BRENT BOLAND APRN [facility] CARD HTN,CP,PALPITATIONS [id number] 01/25/2015 19:53:00 01/26/2015 07:05:00 DIS Outpatient CAITLIN ADAIR DO [facility] SLEEP LINA,SNORING [id number] 10/25/2014 16:23:00 Document Registration [id number] 01/31/2011 19:24:00 Document Registration
[2019-03-21] MEDS ORDERED: LACTATED RINGERS 1,000 ML IV ONE (00:35)
[2019-03-21] MEDS: LACTATED RINGERS 1,000 ML IV SCH ×2 (01:00→07:46)
[2019-03-21] MEDS ORDERED: KETOROLAC 30 MG/ML VIAL IVP PRN (01:00)
[2019-03-21] MEDS ORDERED: ONDANSETRON 4 MG/2 ML (SDV) Z0FRAN IV PRN (01:00)
[2019-03-21] MEDS ORDERED: NS IV 1000 ML 3,401.94 ML IV ONE (02:30)
[2019-03-21] MEDS: NS IV 1000 ML 1,000 ML IV SCH ×3 (02:30→11:00)
[2019-03-21] MEDS: NOREPINEPHRINE 4 MG in NS (IVPB) 250 ML IV SCH ×4 (02:30→21:27)
[2019-03-21] MEDS: CEFEPIME INJECTION 1,000 MG in WATER (STERILE) FOR INJECTION 10 ML IV SCH ×4 (03:39→21:43)
[2019-03-21] MEDS: fentaNYL INJECTION 100 MCG/2 ML AMP IV PRN ×2 (03:43→07:05)
[2019-03-21 04:15] VITALS: BP 116/73
[2019-03-21 06:01] LABS: BASOPHILS % (AUTO) 0 % (0-10); EOSINOPHILS % (AUTO) 0 % (0-10); HEMATOCRIT 41 % (40-54); HEMOGLOBIN 13.7 G/DL (13.3-17.7); LYMPHOCYTES # (AUTO) 1.1 X 10^3 (1.0-4.0); LYMPHOCYTES % (AUTO) 9 % (12-44); MEAN CORPUSCULAR HEMOGLOBIN 30 PG (25-34); MEAN CORPUSCULAR HGB CONC 33 G/DL (32-36); MEAN CORPUSCULAR VOLUME 90 FL (80-99); MONOCYTES # (AUTO) 1.4 X 10^3 (0.0-1.0); MONOCYTES % (AUTO) 11 % (0-12); NEUTROPHILS # (AUTO) 10.1 X 10^3 (1.8-7.8); NEUTROPHILS % (AUTO) 80 % (42-75); PLATELET COUNT 287 10^3/uL (130-400); WHITE BLOOD COUNT 12.7 10^3/uL (4.3-11.0)
[2019-03-21 06:29] LABS: ALANINE AMINOTRANSFERASE 27 U/L (0-55); ALBUMIN 3.8 GM/DL (3.2-4.5); ALKALINE PHOSPHATASE 112 U/L (40-136); BILIRUBIN,TOTAL 0.7 MG/DL (0.1-1.0); BUN/CREATININE RATIO 13; CARBON DIOXIDE 20 MMOL/L (21-32); CHLORIDE 107 MMOL/L (98-107); CREATININE SERUM 0.82 MG/DL (0.60-1.30); GFR ESTIMATED > 60; GLUCOSE 99 MG/DL (70-105); SODIUM 139 MMOL/L (135-145)
--- NOTE | 2019-03-21 07:09 | Diagnostic Imaging Report ---
PROCEDURE: CT maxillofacial without contrast. TECHNIQUE: Multiple contiguous axial images were obtained through the facial bones without the use of intravenous contrast. Auto Exposure Controls were utilized during the CT exam to meet ALARA standards for radiation dose reduction. INDICATION: Left ear pain and swelling. No comparison is available. Findings: There is abnormal soft tissue thickening and edema demonstrated within the left external auditory canal with some adjacent subcutaneous edema and fat stranding suggesting an otitis externa. There also is opacification of the left middle ear and of the left mastoids. This suggest associated otitis. Fluid within the mastoids may reflect effusion but mastoiditis is not excluded. The right middle ear and mastoids appear clear. There is no significant mucosal thickening or air-fluid level present within the paranasal sinuses. The orbital contents are unremarkable. There is a metallic density which enters through the lateral aspect of the right calvarium and extends into the frontal lobe. This has morphological appearance that suggest a prior penetrating injury such as a nail gun injury. There is no adjacent hemorrhage or edema to suggest that this is acute. There are no findings of hydrocephalus. Impression: 1. Marked abnormal soft tissue thickening along the left external auditory canal likely reflecting otitis externa. There is also fluid within the left middle ear and mastoids suggesting associated otomastoiditis. 2. Right middle ear and mastoids clear. 3. Metallic density penetrating the calvarium and extending into the right frontal lobe. There is no adjacent edema or hemorrhage to suggest this is acute. The morphological appearance of this metallic foreign body appears compatible with a nail. Correlate for prior nail gun injury. 4. I agree with the preliminary stat rad report. Dictated by: Dictated on workstation # [id number]
[2019-03-21] MEDS: HYDROcodone/APAP 5 MG/325 MG (LORTAB) TAB PO PRN ×4 (07:50→22:31)
[2019-03-21 08:00] VITALS: BP 129/81
[2019-03-21] MEDS: ACETAMINOPHEN 325 MG TABLET PO PRN ×2 (09:45→20:03)
[2019-03-21] MEDS: VANCOMYCIN INJECTION 1,500 MG in NS IV 500 ML 500 ML IV SCH ×2 (10:03→21:43)
[2019-03-21 12:00] VITALS: BP 125/80
--- NOTE | 2019-03-21 13:18 | History & Physical-Hospitalist ---
History of Present Illness HPI/Chief Complaint this is a 33-year-old white male who Presents to the emergency room with complaints of severe left ear pain. Noted was severe swelling and erythema of the left pinna. Patient had been seen early in the week and started on Ceftin And eardrops by Dr. BAER. incidentally noted on the CT was a nail going through the right side of the skull into the frontal lobe. Source: patient Exam Limitations: no limitations Date Seen 03/21/19 Time Seen by a Provider: 13:15 Attending Physician Delores Dumont MD PCP Jennifer Baer DO Referring Physician Date of Admission Mar 20, 2019 at 23:00 Home Medications & Allergies Home Medications Reviewed patient Home Medication Reconciliation performed by pharmacy medication reconciliations licensed chemical spray technician and/or nursing. Patients Allergies have been reviewed. Allergies Allergies Coded Allergies NKANo Known Allergies (Verified Allergy, Unknown, 04/09/16) Past Imqdhdd-[id number]-Loxbpq Hx Past Med/Social Hx: Reviewed Nursing Past Med/Soc Hx Patient Social History Marrital Status: Employed/Student: employed Alcohol Use: Occasionally Uses Number of Drinks Today: AA Alcohol Beverage of Choice: Beer Recreational Drug Use: No Smoking Status: Never a Smoker 2nd Hand Smoke Exposure: No Recent Foreign Travel: Yes ([place]) Contact w/other who traveled: Yes ([place]) Recent Hopitalizations: No Recent Infectious Disease Expo: No Immunizations Up To Date Tetanus Booster (TDap): Less than 5yrs Pediatric: Yes Seasonal Allergies Seasonal Allergies: No Past Medical History Surgeries: Abdominal, Orthopedic Cardiac: Hypertension Reproductive: No Sexually Transmitted Disease: No HIV/AIDS: No Gastrointestinal: Abdominal Hernia, Gastroesophageal Reflux Loss of Vision: Denies Hearing Impairment: Denies History of Blood Disorders: No Adverse Reaction to Blood Humphrey: No (N/A) Family History Hypertension 19 MOTHER G8 BROTHER Thyroid disease 19 FATHER Review of Systems Constitutional: see HPI EENTM: hearing loss, ear pain Respiratory: no symptoms reported Cardiovascular: no symptoms reported Gastrointestinal: no symptoms reported Genitourinary: no symptoms reported Musculoskeletal: no symptoms reported Skin: rash Psychiatric/Neurological: No Symptoms Reported Physical Exam Physical Exam Vital Signs Vital Signs - First Documented 03/20/19 21:23 Temp 97.8 Pulse 102 Resp 18 B/P (MAP) 148/95 (112) Pulse Ox 97 O2 Delivery Room Air Capillary Refill : Less Than 3 Seconds Height, Weight, BMI Height: 6'0.00" Weight: 250lbs. 0.0oz. [id number]; 33.9 BMI Method:Stated General Appearance: Mild Distress HEENT: Other (left ear erythema and edema with adenopathy of the preauricular area on the left) Neck: Limited Range of Motion, Lymphadenopathy (L) Respiratory: Lungs Clear, Normal Breath Sounds, No Accessory Muscle Use, No Respiratory Distress Cardiovascular: Regular Rate, Rhythm, No Gallop, No Murmur, Normal Peripheral Pulses Rectal: Deferred Extremity: Normal Capillary Refill, Non Tender, No Calf Tenderness Neurologic/Psychiatric: Alert, Oriented x3, No Motor/Sensory Deficits, Normal Mood/Affect, blocker and polisher II-XII Norm as Tested Skin: Erythema Results Results/Procedures Labs Laboratory Tests 03/20/19 21:23 03/21/19 05:43 Patient resulted labs reviewed. Imaging: Reviewed Imaging Films, Reviewed Imaging Report Assessment/Plan Admission Diagnosis otitis externa and cellulitis penetrating nail into right frontal lobe plan for IV antibiotics Admission Status: Observation Clinical Quality Measures DVT/VTE Risk/Contraindication: Risk Factor Score Per Nursin RFS Level Per Nursing on Admit: 3=High Copy Copies To 1: JENNIFER BAER KATHLEEN M MD Mar 21, 2019 13:18
[2019-03-21 15:24] VITALS: BP 136/82
[2019-03-21 20:00] VITALS: BP 126/76
[2019-03-21] MEDS: POLYETHYLENE GLYCOL 17 GM (MIRALAX) PACK PO SCH (21:42)
[2019-03-22 00:39] VITALS: BP 134/78
[2019-03-22] MEDS: NOREPINEPHRINE 4 MG in NS (IVPB) 250 ML IV SCH ×4 (01:18→20:15)
[2019-03-22] MEDS: HYDROcodone/APAP 5 MG/325 MG (LORTAB) TAB PO PRN ×5 (02:54→21:38)
[2019-03-22] MEDS: CEFEPIME INJECTION 1,000 MG in WATER (STERILE) FOR INJECTION 10 ML IV SCH ×4 (03:59→21:39)
[2019-03-22 04:18] VITALS: BP 131/74
[2019-03-22] MEDS: POLYETHYLENE GLYCOL 17 GM (MIRALAX) PACK PO SCH ×2 (09:43→21:36)
[2019-03-22] MEDS: VANCOMYCIN INJECTION 1,500 MG in NS IV 500 ML 500 ML IV SCH ×2 (09:43→21:39)
[2019-03-22 12:26] VITALS: BP 135/86
--- NOTE | 2019-03-22 12:26 | Progress Note - Hospitalist ---
Subjective HPI/CC On Admission Date Seen by Provider: Mar 22, 2019 Time Seen by Provider: 11:15 this is a 33-year-old white male who Presents to the emergency room with complaints of severe left ear pain. Noted was severe swelling and erythema of the left pinna. Patient had been seen early in the week and started on Ceftin And eardrops by Dr. BAER. incidentally noted on the CT was a nail going through the right side of the skull into the frontal lobe. Subjective/Events-last exam patient continues to have severe left ear pain. was still febrile last night. Drainage is still noted from left ear. seems to be increased edema on the left side of the face but decreased erythema. Review of Systems HEENT: Ear Pain Gastrointestinal: Constipation Focused Exam Lactate Level 03/20/19 21:23: Lactic Acid Level 0.79 Objective Exam Vital Signs Vital Signs Date Time Temp Pulse Resp B/P (MAP) Pulse Ox O2 Delivery O2 Flow Rate FiO2 03/22/19 08:00 97 Room Air 03/22/19 04:18 98.8 82 19 131/74 (93) Capillary Refill : Less Than 3 Seconds General Appearance: No Apparent Distress HEENT: Other (red swollen edematous left side of face) Neck: Supple, Lymphadenopathy (L) Respiratory: Chest Non Tender, Lungs Clear, Normal Breath Sounds, No Accessory Muscle Use, No Respiratory Distress Cardiovascular: Regular Rate, Rhythm, No Gallop, No Murmur, Normal Peripheral Pulses Gastrointestinal: Non Tender, Soft Results/Procedures Lab Patient resulted labs reviewed. Imaging: Reviewed Imaging Films, Reviewed Imaging Report Assessment/Plan Assessment and Plan Assess & Plan/Chief Complaint otitis externa on vancomycin, and cefepime will add steroids check labs in morning probable discharge Clinical Quality Measures DVT/VTE Risk/Contraindication: Risk Factor Score Per Nursin RFS Level Per Nursing on Admit: 3=High KIZZY PLATA MD Mar 22, 2019 12:26
[2019-03-22 16:00] VITALS: BP 130/78
[2019-03-22] MEDS: methylPREDNISolone 40 MG/ML (Solu-MEDROL) VIAL IV SCH (17:42)
[2019-03-22 19:36] VITALS: BP 129/81
[2019-03-23] VITALS: BP 119/67
[2019-03-23] MEDS: methylPREDNISolone 40 MG/ML (Solu-MEDROL) VIAL IV SCH ×3 (00:19→11:19)
[2019-03-23] MEDS: NOREPINEPHRINE 4 MG in NS (IVPB) 250 ML IV SCH (01:15)
[2019-03-23 04:00] VITALS: BP 130/78
[2019-03-23 05:28] LABS: BASOPHILS % (AUTO) 0 % (0-10); EOSINOPHILS % (AUTO) 0 % (0-10); HEMATOCRIT 41 % (40-54); HEMOGLOBIN 13.9 G/DL (13.3-17.7); LYMPHOCYTES # (AUTO) 0.8 X 10^3 (1.0-4.0); LYMPHOCYTES % (AUTO) 9 % (12-44); MEAN CORPUSCULAR HEMOGLOBIN 30 PG (25-34); MEAN CORPUSCULAR HGB CONC 34 G/DL (32-36); MEAN CORPUSCULAR VOLUME 88 FL (80-99); MEAN PLATELET VOLUME 11.3 FL (7.4-10.4); MONOCYTES # (AUTO) 0.2 X 10^3 (0.0-1.0); MONOCYTES % (AUTO) 2 % (0-12); NEUTROPHILS # (AUTO) 7.6 X 10^3 (1.8-7.8); NEUTROPHILS % (AUTO) 89 % (42-75); PLATELET COUNT 335 10^3/uL (130-400); RED CELL DISTRIBUTION WIDTH 13.3 % (10.0-14.5); WHITE BLOOD COUNT 8.6 10^3/uL (4.3-11.0)
[2019-03-23 05:54] LABS: BUN/CREATININE RATIO 14; CALCIUM 9.7 MG/DL (8.5-10.1); CARBON DIOXIDE 22 MMOL/L (21-32); CHLORIDE 107 MMOL/L (98-107); CREATININE SERUM 0.74 MG/DL (0.60-1.30); GFR ESTIMATED > 60; GLUCOSE 145 MG/DL (70-105); POTASSIUM 4.3 MMOL/L (3.6-5.0); SODIUM 140 MMOL/L (135-145)
[2019-03-23] MEDS: CEFEPIME INJECTION 1,000 MG in WATER (STERILE) FOR INJECTION 10 ML IV SCH ×4 (05:54→21:38)
[2019-03-23] MEDS: HYDROcodone/APAP 5 MG/325 MG (LORTAB) TAB PO PRN (07:57)
[2019-03-23] MEDS: POLYETHYLENE GLYCOL 17 GM (MIRALAX) PACK PO SCH ×2 (07:59→18:48)
[2019-03-23 08:00] VITALS: BP 130/80
[2019-03-23] MEDS ORDERED: NEBI5TAB8 PO (08:09)
[2019-03-23] MEDS ORDERED: TURM500C4 PO (08:11)
[2019-03-23] MEDS ORDERED: IBUP-2055 PO (08:12)
--- NOTE | 2019-03-23 08:14 | NUR ---
SPOKE WITH PT WELL GOING THRU EXT MED HISTORY (ALSO CALLED DR. BAER) TO COMPLETE THE MED REC. BYSTOLIC 5MG- #30/30DS- HE RECEIVED THIS A SAMPLE FROM DR. BAER. OTC MEDS: IBUPROFEN 200MG- 2 TS Q 6 H PRN TURMERIC: 1 D
[2019-03-23] MEDS ORDERED: TROUGH ORDER-PHARMACY XX NR (09:47)
[2019-03-23] MEDS: VANCOMYCIN 1,750 MG/NS 500 ML IVPB IV SCH ×4 (11:19→18:36)
[2019-03-23 16:00] VITALS: BP 122/64
--- NOTE | 2019-03-23 16:57 | Progress Note ---
Subjective Date Seen by a Provider: Mar 23, 2019 Time Seen by a Provider: 12:20 Subjective/Events-last exam Fwup left otitis externa with left ear and facial cellulitis. Doing much better--left ear not as swollen and tender. Focused Exam Lactate Level 03/20/19 21:23: Lactic Acid Level 0.79 Objective Exam Vital Signs Date Time Temp Pulse Resp B/P (MAP) Pulse Ox O2 Delivery O2 Flow Rate FiO2 03/23/19 16:00 98.2 75 18 122/64 (83) 99 Room Air 03/23/19 08:00 97.8 71 20 130/80 (97) 97 Room Air 03/23/19 08:00 98 Room Air 03/23/19 04:00 97.8 76 18 130/78 (95) 92 Room Air 03/23/19 00:00 97.4 70 24 119/67 (84) 94 Room Air 03/22/19 20:00 97 Room Air 03/22/19 19:36 99.0 74 18 129/81 (97) 96 Room Air I & O 03/23/19 07:00 Intake Total 4700 ml Output Total 550 ml Balance 4150 ml Capillary Refill : Less Than 3 Seconds General Appearance: No Apparent Distress HEENT: Other (left pinna with minimal swelling and no pain with manipulation of ear) Neck: Supple Respiratory: Lungs Clear Cardiovascular: Regular Rate, Rhythm Neurologic/Psychiatric: Alert, Oriented x3 Skin: Warm/Dry Lymphatic: No Adenopathy Results Lab Laboratory Tests 03/23/19 05:05: White Blood Count 8.6, Red Blood Count 4.65, Hemoglobin 13.9, Hematocrit 41, Mean Corpuscular Volume 88, Mean Corpuscular Hemoglobin 30, Mean Corpuscular Hemoglobin Concent 34, Red Cell Distribution Width 13.3, Platelet Count 335, Mean Platelet Volume 11.3H, Neutrophils (%) (Auto) 89H, Lymphocytes (%) (Auto) 9L, Monocytes (%) (Auto) 2, Eosinophils (%) (Auto) 0, Basophils (%) (Auto) 0, Neutrophils # (Auto) 7.6, Lymphocytes # (Auto) 0.8L, Monocytes # (Auto) 0.2, Eosinophils # (Auto) 0.0, Basophils # (Auto) 0.0, Sodium Level 140, Potassium Level 4.3, Chloride Level 107, Carbon Dioxide Level 22, Anion Gap 11, Blood Urea Nitrogen 10, Creatinine 0.74, Estimat Glomerular Filtration Rate > 60, BUN/Creatinine Ratio 14, Glucose Level 145H, Calcium Level 9.7 03/23/19 09:50: Vancomycin Level Trough 5.5L Microbiology 03/20/19 Blood Culture - Preliminary, Resulted No growth Assessment/Plan Assessment/Plan Assess & Plan/Chief Complaint 1. Acute Left Otitis Externa with Left Ear/Facial Cellulitis--Continue Vanco mycin, Cefepime and IV solumedrol, recheck CBC, CRP in AM--if stable will send home on oral abx and oral prednisone Clinical Quality Measures DVT/VTE Risk/Contraindication: Risk Factor Score Per Nursin RFS Level Per Nursing on Admit: 3=High CAITLIN BAER DO Mar 23, 2019 16:57
[2019-03-24] VITALS: BP 126/74
[2019-03-24] MEDS: VANCOMYCIN 1,750 MG/NS 500 ML IVPB IV SCH ×4 (03:19→12:00)
[2019-03-24] MEDS: CEFEPIME INJECTION 1,000 MG in WATER (STERILE) FOR INJECTION 10 ML IV SCH ×3 (04:52→15:53)
[2019-03-24] MEDS: HYDROcodone/APAP 5 MG/325 MG (LORTAB) TAB PO PRN (04:58)
[2019-03-24 06:02] LABS: BASOPHILS % (AUTO) 0 % (0-10); EOSINOPHILS % (AUTO) 0 % (0-10); HEMATOCRIT 37 % (40-54); HEMOGLOBIN 12.2 G/DL (13.3-17.7); LYMPHOCYTES % (AUTO) 14 % (12-44); MEAN CORPUSCULAR HEMOGLOBIN 29 PG (25-34); MEAN CORPUSCULAR HGB CONC 33 G/DL (32-36); MEAN CORPUSCULAR VOLUME 90 FL (80-99); MEAN PLATELET VOLUME 11.1 FL (7.4-10.4); MONOCYTES # (AUTO) 1.2 X 10^3 (0.0-1.0); MONOCYTES % (AUTO) 9 % (0-12); NEUTROPHILS # (AUTO) 10.8 X 10^3 (1.8-7.8); NEUTROPHILS % (AUTO) 77 % (42-75); PLATELET COUNT 379 10^3/uL (130-400); RED CELL DISTRIBUTION WIDTH 13.7 % (10.0-14.5)
[2019-03-24 08:00] VITALS: BP 110/71
[2019-03-24] MEDS: POLYETHYLENE GLYCOL 17 GM (MIRALAX) PACK PO SCH (09:00)
[2019-03-24] MEDS ORDERED: TROUGH ORDER-PHARMACY XX NR (10:00)
[2019-03-24] MEDS ORDERED: AMOX-358 PO (12:55)
[2019-03-24] MEDS ORDERED: PRD20T PO (12:55)
[2019-03-24] MEDS ORDERED: NF-CIPDEC OT (12:55)
--- NOTE | 2019-03-24 12:56 | Discharge Inst-Simple/Standard ---
Discharge Inst-Standard Reconcile Patient Problems Problems Reviewed?: Yes Discharge Medications New, Converted or Re-Newed RX: Transmitted to Pharmacy Patient Instructions/Follow Up Plan of Care/Instructions/FU: See me in 1 week Activity as Tolerated: Yes Discharge Diet: No Restrictions Planned Outpatient Orders/Ref. Pneu Vac Indicated: Yes CAITLIN BAER DO Mar 24, 2019 12:56
[2019-03-24 16:11] VITALS: BP 132/90
--- NOTE | 2019-03-24 18:34 | Discharge Summary ---
Diagnosis/Chief Complaint Date of Admission Mar 20, 2019 at 23:00 Date of Discharge Mar 24, 2019 at 16:45 Discharge Date: Mar 24, 2019 Discharge Diagnosis 1. Left Otitis Externa with Left Ear/Facial Cellulitis--clinically much improved with CRP down to 2.72 2. Right Frontal Lobe Foreign Body--Chronic 3. Elevated Blood Pressure--improved Discharge Summary Hospital Course Hospital Course This is a 33 year old male admitted to the hospital after failed outpatient treatment of acute left otitis externa. The patient's otitis externa had progressed to cellulitis of his ear as well despite being on oral antibiotics and ear drops. He was found to have an elevated WBC count of 12.9 and an elevated CRP of 8.27. His CT scan did reveal otitis externa with cellulitis of the ear canal and ear. The CT scan also revealed a right frontal lobe foreign body which appeared to be a nail--this had no acute changes associated with it. He was admitted and placed on IV Vancomycin and IV cefepime. He was given to radol for pain and had hydrocodone and fentanyl available for prn use. Due to ongoing pain and swelling after admission, IV solumedrol was added to his regimen. He did spike fevers up to 101 his first 2 days of admission but has been afebrile for the last 3 days. By the time of admission his ear pain was much improved and his CRP was down to 2.72. He was feeling much better and it was decided he could be discharge home on oral antibiotics with a prednisone taper and ciprodex drops. He will follow up with me in 1 week and will follow up with ENT in the next 2-3 weeks. Labs Laboratory Tests 03/23/19 05:05: Mean Platelet Volume 11.3H, Neutrophils (%) (Auto) 89H, Lymphocytes (%) (Auto) 9L, Lymphocytes # (Auto) 0.8L, Glucose Level 145H 03/23/19 09:50: Vancomycin Level Trough 5.5L 03/24/19 05:20: Mean Platelet Volume 11.1H, Neutrophils (%) (Auto) 77H, White Blood Count 14.0H, Red Blood Count 4.17L, Hemoglobin 12.2L, Hematocrit 37L, Neutrophils # (Auto) 10.8H, Monocytes # (Auto) 1.2H, C-Reactive Protein High Sensitivity 2.72H 03/24/19 10:20: Procedures None. Discharge Physical Examination Allergies: Coded Allergies: NKANo Known Allergies (Verified Allergy, Unknown, 04/09/16) Vitals & I&Os Vital Signs Date Time Temp Pulse Resp B/P (MAP) Pulse Ox O2 Delivery O2 Flow Rate FiO2 03/24/19 16:11 98.6 60 22 132/90 (104) 98 Room Air General Appearance: Alert, Oriented X3, Cooperative, No Acute Distress HEENT: Other (left EAC with purulent drainage) Extremities: No Edema Skin: No Rashes Neuro: Normal Speech Psych/Mental Status: Mental Status NL, Mood NL Discharge Home Medications Reviewed and agree with Discharge Medication list on patient's Discharge Instruction sheet Instructions to Patient/Family Please see electronic discharge instructions given to patient. Clinical Quality Measures DVT/VTE Risk/Contraindication: Risk Factor Score Per Nursin RFS Level Per Nursing on Admit: 3=High CAITLIN BAER DO Mar 24, 2019 18:34
--- NOTE | 2019-03-26 08:58 | Physician Query Clarification ---
PQ-Uncertain Diagnosis Admission/Discharge Admission Date: Mar 20, 2019 at 23:00 Discharge Date: Mar 24, 2019 at 16:45 The medical record reflects the following clinical scenario: History/Risk Factors: otitis externa left ear, cellulitis external lt ear Clinical Findings: T101.1, P 22, WBC 12.9, Lactic acid 0.79 Treatment: IV Vancomycin, IV Cefepime Question: Is Sepsis a clinically valid diagnosis? Sepsis was documented in the ER record with no further documentation in the medical record. Please document a response in Progress Note or Discharge Summary. 1. Yes, clinically valid, condition resolved. 2. No, condition ruled out. 3. Other, with explanation of clinical findings. 4. Undetermined, no explanation for clinical findings. PHYSICIAN RESPONSE Diagnosis clinically valid: No, conditon ruled out Please remember a lack of response to the above will prompt a phone page by [facility]/Coding staff. In responding to this query, please exercise your independent professional judgment. The purpose of this communication is to more accurately reflect the complexity of your patients condition. The fact that a question is asked does not imply that any particular answer is desired or expected. Thank you for your timely response to this clarification. Requestors name: Latoya THIS PHYSICIAN QUERY FORM IS A PERMANENT PART OF THE MEDICAL RECORD LATOYA BLACK Mar 26, 2019 08:58 CAITLIN BAER DO Mar 26, 2019 19:14
== END 2019-03-24 16:45 | disposition home or self-care (01) | DRG 155 ==
LOC: EDUNIT# 21:19 → ER 21:20 → 4TH 23:00
PROVIDERS: ADMIT Internal Medicine; ATTEND Internal Medicine
DX: H60.92 Unspecified otitis externa, left ear (principal); H60.12 Cellulitis of left external ear; L03.211 Cellulitis of face; K21.9 Gastro-esophageal reflux disease without esophagitis; I10 Essential (primary) hypertension; G47.30 Sleep apnea, unspecified; Z18.11 Retained magnetic metal fragments
CPT/HCPCS: 36415; 70486; 80048; 80053; 80202; 83605; 85025; 86141; 87040; 96374; 96375

== ENCOUNTER → 2021-02-19 | Outpatient (CLI) | payer BC ==
[~2021-02-19] MED LIST changes: +AMOX-358 PO; +CEFU250T80 PO; +CIPR2.5D3 LEFT EAR; +IBUP-2473 PO; +NEBI5TAB8 PO; +NF-CIPDEC OT; +OMEP20CA18; +PRD20T PO; +TURM500C4 PO
== END ==
LOC: LAB 11:12
PROVIDERS: ATTEND Emergency Medicine
DX: Z20.822 Contact with and (suspected) exposure to COVID-19 (principal)
CPT/HCPCS: 87636